=== PATIENT | female | born 1930 | race Caucasian/White ===

== ENCOUNTER 2018-04-16 09:19 | Inpatient (IN) | payer MEDICARE, OTHER ==
[2018-04-16] MEDS ORDERED: NITROGLYCERIN (SL) 0.4 MG TAB SL (10:00)
[2018-04-16] MEDS: ASPIRIN 81 MG TAB PO (10:08)
[2018-04-16] MEDS: NITROGLYCERIN 2% 1 GM OINT PKT TD (10:08)
[2018-04-16 10:34] LABS: ADD MAN DIFF? NO
[2018-04-16 10:45] LABS: WHITE BLOOD COUNT 10.3 10^3/ul (4.8-10.8)
[2018-04-16 10:45] LABS: ABNORMAL IP MESSAGE 1; BASOPHILS % 0.3 % (0.0-2.0); EOSINOPHILS % 0.3 % (0.0-7.0); HEMATOCRIT 36.8 % (37.0-47.0); HEMOGLOBIN 11.3 g/dl (12.0-16.0); LYMPHOCYTES # 0.8 10^3/ul (0.8-2.9); LYMPHOCYTES % 7.7 % (15.0-51.0); MEAN CORPUSCULAR HEMOGLOBIN 31.4 pg (29.0-33.0); MEAN CORPUSCULAR HGB CONC 30.7 g/dl (32.0-37.0); MEAN CORPUSCULAR VOLUME 102.2 fl (82.0-101.0); MEAN PLATELET VOLUME 13.5 fl (7.4-10.4); MONOCYTE # 0.6 10^3/ul (0.3-0.9); MONOCYTES % 6.1 % (0.0-11.0); NEUTROPHIL # 8.8 10^3/ul (1.6-7.5); NEUTROPHILS % 85.1 % (39.0-77.0); PLATELET COUNT 119 10^3/UL (140-415); RED CELL DISTRIBUTION WIDTH 15.7 % (11.5-14.5)
[2018-04-16 10:48] LABS: POSITIVE DIFF @See below
[2018-04-16 10:54] LABS: INR 2.74; PROTIME 29.8 Sec (11.9-14.9); PT RATIO 2.3
[2018-04-16 11:01] LABS: ANION GAP 7 (5-13); BLOOD UREA NITROGEN 34 mg/dl (7-20); CALCIUM 9.2 mg/dl (8.4-10.2); CARBON DIOXIDE 32 mmol/L (21-31); CHLORIDE 105 mmol/L (97-110); CREATININE 1.21 mg/dl (0.44-1.00); GLUCOSE 152 mg/dl (70-220); POTASSIUM 4.7 mmol/L (3.5-5.1); SODIUM 144 mmol/L (135-144)
[2018-04-16] MEDS ORDERED: ONDANSETRON 4 MG INJ IV (12:00)
[2018-04-16] MEDS ORDERED: ACETAMINOPHEN 325 MG TAB PO (12:00)
[2018-04-16 16:50] LABS: DIGOXIN < 0.4 ng/ml (1.0-2.0)
[2018-04-16 17:34] LABS: CREATINE KINASE 34 IU/L (23-200)
[2018-04-16 17:46] LABS: CK INDEX 4.1; CK-MB 1.41 ng/ml (0.0-2.4); TROPONIN-I 0.014 ng/ml (0.000-0.120)
[2018-04-16] MEDS: FUROSEMIDE 20 MG INJ IV (18:50)
[2018-04-16 23:35] LABS: CREATINE KINASE 30 IU/L (23-200)
[2018-04-16 23:48] LABS: CK-MB 1.49 ng/ml (0.0-2.4); TROPONIN-I 0.033 ng/ml (0.000-0.120)
[2018-04-17 06:11] LABS: RETICULOCYTE COUNT # 0.082 X10^6 (0.020-0.110); RETICULOCYTE COUNT % 2.3 % (0.5-1.5)
[2018-04-17 06:31] LABS: IRON 34 ug/dl (35-150)
[2018-04-17] MEDS: LEVOTHYROXINE 25 MCG TAB PO (06:31)
[2018-04-17] MEDS: FUROSEMIDE 20 MG INJ IV (06:32)
[2018-04-17 06:34] LABS: INR 1.51; PROTIME 18.5 Sec (11.9-14.9); PT RATIO 1.4
[2018-04-17 06:42] LABS: % IRON SATURATION 10 % SAT (22-52); TOTAL IRON BINDING CAPACITY 339 ug/dl (241-421)
[2018-04-17 06:48] LABS: CHOL/HDL RATIO 4.3 RATIO; HDL CHOLESTEROL 30 mg/dl (33-92); LDL CHOLESTEROL,CALCULATED 83 mg/dl; TRIGLYCERIDES 89 mg/dl (0-149)
[2018-04-17 06:48] LABS: CHOLESTEROL 131 mg/dl (100-200)
[2018-04-17 06:58] LABS: LACTATE DEHYDROGENASE 529 IU/L (313-618)
[2018-04-17 06:58] LABS: URIC ACID 6.8 mg/dl (3.1-7.9)
[2018-04-17 07:20] LABS: CARCINOEMBRYONIC ANTIGEN 1.2 ng/ml (0.0-5.0)
[2018-04-17 08:09] LABS: FERRITIN 52.9 ng/ml (11.1-264.0)
[2018-04-17 08:29] LABS: ERYTHROCYTE SEDIMENTATION RATE 76 mm/Hr (0-30)
[2018-04-17 09:12] LABS: FOLATE > 20.0 ng/ml (2.8-20.0)
[2018-04-17] MEDS: DIGOXIN 0.125 MG TAB PO (13:12)
[2018-04-17] MEDS: FUROSEMIDE 40 MG INJ IV (17:56)
[2018-04-17] MEDS ORDERED: NON-FORMULARY/PATIENT OWN MED (Eszopiclone (Lunesta) 2 MG) PO (21:00)
[2018-04-18] MEDS: LEVOTHYROXINE 25 MCG TAB PO (06:24)
[2018-04-18] MEDS: FUROSEMIDE 40 MG INJ IV ×2 (06:26→17:37)
[2018-04-18 08:53] LABS: ADD MAN DIFF? NO
[2018-04-18 08:56] LABS: BASOPHILS % 0.4 % (0.0-2.0); EOSINOPHILS % 0.5 % (0.0-7.0); HEMATOCRIT 37.6 % (37.0-47.0); HEMOGLOBIN 11.3 g/dl (12.0-16.0); LYMPHOCYTES # 0.6 10^3/ul (0.8-2.9); LYMPHOCYTES % 7.4 % (15.0-51.0); MEAN CORPUSCULAR HEMOGLOBIN 31.1 pg (29.0-33.0); MEAN CORPUSCULAR HGB CONC 30.1 g/dl (32.0-37.0); MEAN CORPUSCULAR VOLUME 103.6 fl (82.0-101.0); MEAN PLATELET VOLUME 12.4 fl (7.4-10.4); MONOCYTE # 0.6 10^3/ul (0.3-0.9); MONOCYTES % 6.6 % (0.0-11.0); NEUTROPHIL # 7.2 10^3/ul (1.6-7.5); NEUTROPHILS % 84.6 % (39.0-77.0); PLATELET COUNT 115 10^3/UL (140-415); RED BLOOD COUNT 3.63 10^6/ul (4.20-5.40); RED CELL DISTRIBUTION WIDTH 15.5 % (11.5-14.5)
[2018-04-18 08:56] LABS: WHITE BLOOD COUNT 8.5 10^3/ul (4.8-10.8)
[2018-04-18] MEDS: SPIRONOLACTONE 25 MG TAB PO (09:00)
[2018-04-18] MEDS: DOCUSATE SODIUM 250 MG CAP PO (09:00)
[2018-04-18] MEDS: LOSARTAN 50 MG TAB PO (09:00)
[2018-04-18 09:17] LABS: ANION GAP 7 (5-13); BLOOD UREA NITROGEN 38 mg/dl (7-20); CARBON DIOXIDE 33 mmol/L (21-31); CHLORIDE 105 mmol/L (97-110); CREATININE 1.06 mg/dl (0.44-1.00); GLUCOSE 158 mg/dl (70-220); POTASSIUM 4.6 mmol/L (3.5-5.1); SODIUM 145 mmol/L (135-144)
[2018-04-18] MEDS: GABAPENTIN 100 MG CAP PO (12:31)
[2018-04-18] MEDS: DIGOXIN 0.125 MG TAB PO (12:31)
[2018-04-18] MEDS: INSULIN ASPART [NOVOLOG] 3 ML PEN SC ×2 (17:40→20:57)
[2018-04-18 20:04] LABS: AADO2 Arterial 50.1 mmHg (7.0-24.0); Allen Test ACCEPTAB; Arterial Base Excess 8.1 mmol/L (-3.0-3); Arterial Blood Gas Oxygen Sat 95.9 mmHG (95.0-100.0); Arterial COHb 1.1 % (0.0-3.0); Arterial Fraction of Oxyhgb 94.7 % (93.0-99.0); Arterial HCO3 35.9 mmol/L (22.0-26.0); Arterial MetHb 0.1 % (0.0-1.5); Arterial pCO2 67.5 mmhg (35-45); MODE NASAL CANNULA; Site Right Brachial
[2018-04-18] MEDS ORDERED: FUROSEMIDE 20 MG INJ (22:30)
[2018-04-18] MEDS: FUROSEMIDE 20 MG INJ IV (22:35)
[2018-04-19 05:48] LABS: ADD MAN DIFF? NO
[2018-04-19 05:53] LABS: WHITE BLOOD COUNT 7.7 10^3/ul (4.8-10.8)
[2018-04-19 05:53] LABS: ABNORMAL IP MESSAGE 1; BASOPHILS % 0.3 % (0.0-2.0); EOSINOPHILS # 0.1 10^3/ul (0.0-0.5); HEMATOCRIT 37.1 % (37.0-47.0); HEMOGLOBIN 11.3 g/dl (12.0-16.0); LYMPHOCYTES # 0.6 10^3/ul (0.8-2.9); LYMPHOCYTES % 7.9 % (15.0-51.0); MEAN CORPUSCULAR HEMOGLOBIN 31.7 pg (29.0-33.0); MEAN CORPUSCULAR HGB CONC 30.5 g/dl (32.0-37.0); MEAN CORPUSCULAR VOLUME 103.9 fl (82.0-101.0); MEAN PLATELET VOLUME 13.3 fl (7.4-10.4); MONOCYTE # 0.6 10^3/ul (0.3-0.9); MONOCYTES % 7.9 % (0.0-11.0); NEUTROPHIL # 6.4 10^3/ul (1.6-7.5); NEUTROPHILS % 82.4 % (39.0-77.0); PLATELET COUNT 117 10^3/UL (140-415); RED BLOOD COUNT 3.57 10^6/ul (4.20-5.40); RED CELL DISTRIBUTION WIDTH 15.1 % (11.5-14.5)
[2018-04-19] MEDS: FUROSEMIDE 40 MG INJ IV (05:55)
[2018-04-19] MEDS: LEVOTHYROXINE 25 MCG TAB PO (06:01)
[2018-04-19 06:09] LABS: ANION GAP 3 (5-13); BLOOD UREA NITROGEN 40 mg/dl (7-20); CALCIUM 8.9 mg/dl (8.4-10.2); CARBON DIOXIDE 37 mmol/L (21-31); CHLORIDE 105 mmol/L (97-110); CREATININE 1.04 mg/dl (0.44-1.00); GLUCOSE 162 mg/dl (70-220); POTASSIUM 4.7 mmol/L (3.5-5.1); SODIUM 145 mmol/L (135-144)
[2018-04-19 06:11] LABS: POSITIVE DIFF @See below
[2018-04-19] MEDS: INSULIN ASPART [NOVOLOG] 3 ML PEN SC ×5 (07:00→21:00)
[2018-04-19] MEDS ORDERED: GLUCOSE GEL 15 GRAM TUBE PO ×2 (09:00)
[2018-04-19] MEDS ORDERED: GLUCOSE GEL 15 GRAM TUBE BUCCAL (09:00)
[2018-04-19] MEDS ORDERED: GLUCAGON 1 MG INJ IM (09:00)
[2018-04-19] MEDS ORDERED: DEXTROSE 50% 50 ML SYRINGE IV ×2 (09:00)
[2018-04-19] MEDS: SPIRONOLACTONE 25 MG TAB PO (09:24)
[2018-04-19] MEDS: LOSARTAN 50 MG TAB PO (09:24)
[2018-04-19] MEDS: DOCUSATE SODIUM 250 MG CAP PO (09:24)
[2018-04-19] MEDS: DIGOXIN 0.125 MG TAB PO (13:14)
[2018-04-19] MEDS: SOD FERRIC GLUC COMPLX 125 MG in SOD CHLORIDE 0.9% 100 ML IVPB (17:10)
[2018-04-19] MEDS: FUROSEMIDE 20 MG INJ IV (17:11)
[2018-04-20 01:38] LABS: PROTEIN, TOTAL 6.1 g/dL (6.1-8.1)
[2018-04-20 05:34] LABS: ADD MAN DIFF? NO
[2018-04-20 05:41] LABS: ABNORMAL IP MESSAGE 1; BASOPHILS % 0.4 % (0.0-2.0); EOSINOPHILS % 0.4 % (0.0-7.0); HEMATOCRIT 37.7 % (37.0-47.0); HEMOGLOBIN 11.5 g/dl (12.0-16.0); LYMPHOCYTES # 0.5 10^3/ul (0.8-2.9); MEAN CORPUSCULAR HEMOGLOBIN 31.5 pg (29.0-33.0); MEAN CORPUSCULAR HGB CONC 30.5 g/dl (32.0-37.0); MEAN CORPUSCULAR VOLUME 103.3 fl (82.0-101.0); MEAN PLATELET VOLUME 12.7 fl (7.4-10.4); MONOCYTE # 0.5 10^3/ul (0.3-0.9); NEUTROPHIL # 6.3 10^3/ul (1.6-7.5); NEUTROPHILS % 84.5 % (39.0-77.0); PLATELET COUNT 115 10^3/UL (140-415); RED BLOOD COUNT 3.65 10^6/ul (4.20-5.40); RED CELL DISTRIBUTION WIDTH 14.8 % (11.5-14.5)
[2018-04-20 05:41] LABS: WHITE BLOOD COUNT 7.5 10^3/ul (4.8-10.8)
[2018-04-20 06:03] LABS: POSITIVE DIFF @See below
[2018-04-20 06:08] LABS: ANION GAP 4 (5-13); BLOOD UREA NITROGEN 41 mg/dl (7-20); CALCIUM 8.9 mg/dl (8.4-10.2); CARBON DIOXIDE 37 mmol/L (21-31); CHLORIDE 103 mmol/L (97-110); CREATININE 0.94 mg/dl (0.44-1.00); GLUCOSE 162 mg/dl (70-220); POTASSIUM 4.6 mmol/L (3.5-5.1); SODIUM 144 mmol/L (135-144)
[2018-04-20] MEDS: LEVOTHYROXINE 25 MCG TAB PO (06:11)
[2018-04-20] MEDS: FUROSEMIDE 20 MG INJ IV ×2 (06:13→17:03)
[2018-04-20] MEDS: INSULIN ASPART [NOVOLOG] 3 ML PEN SC ×5 (07:00→21:15)
[2018-04-20] MEDS: SPIRONOLACTONE 25 MG TAB PO (08:15)
[2018-04-20] MEDS: DOCUSATE SODIUM 250 MG CAP PO (08:15)
[2018-04-20] MEDS: LOSARTAN 50 MG TAB PO (08:15)
[2018-04-20 08:22] LABS: AADO2 Arterial 52.3 mmHg (7.0-24.0); Allen Test ACCEPTAB; Arterial Base Excess 11.8 mmol/L (-3.0-3); Arterial Blood Gas Oxygen Sat 95.9 mmHG (95.0-100.0); Arterial COHb 1.1 % (0.0-3.0); Arterial Fraction of Oxyhgb 94.7 % (93.0-99.0); Arterial MetHb 0.2 % (0.0-1.5); Arterial Total Hemglobin 11.2 g/dl (12.0-18.0); Arterial pCO2 65.1 mmhg (35-45); Blood Gas IEPAP 15/5; Blood Gas PS 10; MODE MASK - BIPAP; Site Right Radial
[2018-04-20] MEDS: DIGOXIN 0.125 MG TAB PO (12:37)
[2018-04-20] MEDS: IPRATROPIUM (NEB) 0.5 MG/2.5 ML AMP HHN ×2 (15:52→19:04)
[2018-04-20] MEDS: SOD FERRIC GLUC COMPLX 125 MG in SOD CHLORIDE 0.9% 100 ML IVPB (16:10)
[2018-04-20] MEDS: LIDOCAINE 5% PATCH TD (17:30)
[2018-04-20 18:26] LABS: ALPHA-1-GLOBULINS 0.4 g/dL (0.2-0.3); ALPHA-2-GLOBULINS 0.8 g/dL (0.5-0.9); BETA 2 GLOBULINS 0.4 g/dL (0.2-0.5); BETA GLOBULINS 0.5 g/dL (0.4-0.6); GAMMA GLOBULINS 1.1 g/dL (0.8-1.7)
[2018-04-21] MEDS: IPRATROPIUM (NEB) 0.5 MG/2.5 ML AMP HHN ×4 (01:04→20:09)
[2018-04-21 06:02] LABS: ADD MAN DIFF? NO
[2018-04-21 06:09] LABS: WHITE BLOOD COUNT 8.3 10^3/ul (4.8-10.8)
[2018-04-21 06:09] LABS: ABNORMAL IP MESSAGE 1; BASOPHILS % 0.5 % (0.0-2.0); EOSINOPHILS # 0.1 10^3/ul (0.0-0.5); EOSINOPHILS % 0.7 % (0.0-7.0); HEMATOCRIT 37.9 % (37.0-47.0); HEMOGLOBIN 11.4 g/dl (12.0-16.0); LYMPHOCYTES # 0.6 10^3/ul (0.8-2.9); MEAN CORPUSCULAR HEMOGLOBIN 30.7 pg (29.0-33.0); MEAN CORPUSCULAR HGB CONC 30.1 g/dl (32.0-37.0); MEAN CORPUSCULAR VOLUME 102.2 fl (82.0-101.0); MEAN PLATELET VOLUME 12.9 fl (7.4-10.4); MONOCYTE # 0.6 10^3/ul (0.3-0.9); MONOCYTES % 7.8 % (0.0-11.0); NEUTROPHIL # 6.9 10^3/ul (1.6-7.5); NEUTROPHILS % 83.4 % (39.0-77.0); PLATELET COUNT 120 10^3/UL (140-415); RED BLOOD COUNT 3.71 10^6/ul (4.20-5.40)
[2018-04-21] MEDS: LEVOTHYROXINE 25 MCG TAB PO (06:20)
[2018-04-21] MEDS: FUROSEMIDE 20 MG INJ IV ×2 (06:21→18:04)
[2018-04-21 06:26] LABS: ANION GAP 6 (5-13); BLOOD UREA NITROGEN 38 mg/dl (7-20); CALCIUM 8.9 mg/dl (8.4-10.2); CARBON DIOXIDE 37 mmol/L (21-31); CHLORIDE 101 mmol/L (97-110); CREATININE 0.87 mg/dl (0.44-1.00); GLUCOSE 164 mg/dl (70-220); POTASSIUM 4.5 mmol/L (3.5-5.1); SODIUM 144 mmol/L (135-144)
[2018-04-21 06:41] LABS: LYMPHOCYTES % 6.9 % (15.0-51.0); POSITIVE DIFF @See below
[2018-04-21] MEDS: INSULIN ASPART [NOVOLOG] 3 ML PEN SC ×5 (07:59→20:47)
[2018-04-21] MEDS: SPIRONOLACTONE 25 MG TAB PO (09:29)
[2018-04-21] MEDS: DOCUSATE SODIUM 250 MG CAP PO (09:30)
[2018-04-21] MEDS: LOSARTAN 50 MG TAB PO (09:30)
[2018-04-21] MEDS: LIDOCAINE 5% PATCH TD (09:38)
[2018-04-21] MEDS: DIGOXIN 0.125 MG TAB PO (14:11)
[2018-04-21] MEDS: SOD FERRIC GLUC COMPLX 125 MG in SOD CHLORIDE 0.9% 100 ML IVPB (17:12)
[2018-04-21] MEDS: ZOLPIDEM 5 MG TAB PO (23:27)
[2018-04-22] MEDS: IPRATROPIUM (NEB) 0.5 MG/2.5 ML AMP HHN ×4 (01:46→21:10)
[2018-04-22 05:17] LABS: AADO2 Arterial 66.9 mmHg (7.0-24.0); Allen Test ACCEPTAB; Arterial Base Excess 12.7 mmol/L (-3.0-3); Arterial Blood Gas Oxygen Sat 94.3 mmHG (95.0-100.0); Arterial COHb 1.2 % (0.0-3.0); Arterial Fraction of Oxyhgb 93.1 % (93.0-99.0); Arterial MetHb 0.1 % (0.0-1.5); Arterial Total Hemglobin 13.4 g/dl (12.0-18.0); Arterial pCO2 63.3 mmhg (35-45); Blood Gas IEPAP 17/7; MODE MASK - BIPAP; Site Right Radial
[2018-04-22 06:12] LABS: ADD MAN DIFF? NO
[2018-04-22 06:24] LABS: BASOPHILS % 0.3 % (0.0-2.0); EOSINOPHILS # 0.1 10^3/ul (0.0-0.5); EOSINOPHILS % 0.5 % (0.0-7.0); HEMATOCRIT 39.5 % (37.0-47.0); HEMOGLOBIN 11.9 g/dl (12.0-16.0); LYMPHOCYTES # 0.6 10^3/ul (0.8-2.9); LYMPHOCYTES % 6.4 % (15.0-51.0); MEAN CORPUSCULAR HEMOGLOBIN 30.8 pg (29.0-33.0); MEAN CORPUSCULAR HGB CONC 30.1 g/dl (32.0-37.0); MEAN CORPUSCULAR VOLUME 102.3 fl (82.0-101.0); MONOCYTE # 0.6 10^3/ul (0.3-0.9); MONOCYTES % 6.2 % (0.0-11.0); NEUTROPHIL # 8.5 10^3/ul (1.6-7.5); NEUTROPHILS % 85.5 % (39.0-77.0); PLATELET COUNT 144 10^3/UL (140-415); RED BLOOD COUNT 3.86 10^6/ul (4.20-5.40); RED CELL DISTRIBUTION WIDTH 15.3 % (11.5-14.5)
[2018-04-22 06:24] LABS: WHITE BLOOD COUNT 9.9 10^3/ul (4.8-10.8)
[2018-04-22 06:55] LABS: ANION GAP 5 (5-13); BLOOD UREA NITROGEN 38 mg/dl (7-20); CALCIUM 9.1 mg/dl (8.4-10.2); CARBON DIOXIDE 38 mmol/L (21-31); CHLORIDE 100 mmol/L (97-110); CREATININE 0.95 mg/dl (0.44-1.00); GLUCOSE 190 mg/dl (70-220); POTASSIUM 4.2 mmol/L (3.5-5.1); SODIUM 143 mmol/L (135-144)
[2018-04-22] MEDS: FUROSEMIDE 20 MG INJ IV ×3 (07:04→20:49)
[2018-04-22] MEDS: LEVOTHYROXINE 25 MCG TAB PO (07:04)
[2018-04-22] MEDS: INSULIN ASPART [NOVOLOG] 3 ML PEN SC ×5 (08:07→21:07)
[2018-04-22] MEDS: DOCUSATE SODIUM 250 MG CAP PO (12:18)
[2018-04-22] MEDS: LIDOCAINE 5% PATCH TD (12:18)
[2018-04-22] MEDS: SPIRONOLACTONE 25 MG TAB PO (12:18)
[2018-04-22] MEDS: LOSARTAN 50 MG TAB PO (12:18)
[2018-04-22] MEDS: DIGOXIN 0.125 MG TAB PO (13:43)
[2018-04-22 19:37] LABS: AADO2 Arterial 36.8 mmHg (7.0-24.0); Allen Test ACCEPTAB; Arterial Base Excess 13.8 mmol/L (-3.0-3); Arterial Blood Gas Oxygen Sat 81.3 mmHG (95.0-100.0); Arterial COHb 1.5 % (0.0-3.0); Arterial HCO3 40.3 mmol/L (22.0-26.0); Arterial MetHb 0.1 % (0.0-1.5); Arterial Total Hemglobin 12.7 g/dl (12.0-18.0); Arterial pCO2 59.6 mmhg (35-45); MODE ROOM AIR; Site Right Radial
[2018-04-23] MEDS: IPRATROPIUM (NEB) 0.5 MG/2.5 ML AMP HHN ×4 (01:22→19:30)
[2018-04-23 05:16] LABS: AADO2 Arterial 30.3 mmHg (7.0-24.0); Allen Test ACCEPTAB; Arterial Base Excess 13.7 mmol/L (-3.0-3); Arterial Blood Gas Oxygen Sat 83.9 mmHG (95.0-100.0); Arterial COHb 1.3 % (0.0-3.0); Arterial Fraction of Oxyhgb 82.7 % (93.0-99.0); Arterial HCO3 40.4 mmol/L (22.0-26.0); Arterial MetHb 0.1 % (0.0-1.5); Arterial Total Hemglobin 12.3 g/dl (12.0-18.0); Arterial pCO2 61.6 mmhg (35-45); MODE ROOM AIR; Site Right Radial
[2018-04-23] MEDS: FUROSEMIDE 20 MG INJ IV ×2 (05:56→17:39)
[2018-04-23] MEDS: LEVOTHYROXINE 25 MCG TAB PO (05:57)
[2018-04-23 06:09] LABS: ADD MAN DIFF? NO
[2018-04-23 06:21] LABS: WHITE BLOOD COUNT 8.1 10^3/ul (4.8-10.8)
[2018-04-23 06:21] LABS: ABNORMAL IP MESSAGE 1; BASOPHILS % 0.4 % (0.0-2.0); EOSINOPHILS # 0.1 10^3/ul (0.0-0.5); EOSINOPHILS % 0.9 % (0.0-7.0); HEMATOCRIT 37.6 % (37.0-47.0); HEMOGLOBIN 11.2 g/dl (12.0-16.0); LYMPHOCYTES # 0.7 10^3/ul (0.8-2.9); MEAN CORPUSCULAR HEMOGLOBIN 30.6 pg (29.0-33.0); MEAN CORPUSCULAR HGB CONC 29.8 g/dl (32.0-37.0); MEAN CORPUSCULAR VOLUME 102.7 fl (82.0-101.0); MEAN PLATELET VOLUME 13.1 fl (7.4-10.4); MONOCYTE # 0.6 10^3/ul (0.3-0.9); MONOCYTES % 7.7 % (0.0-11.0); NEUTROPHIL # 6.6 10^3/ul (1.6-7.5); NEUTROPHILS % 81.9 % (39.0-77.0); PLATELET COUNT 131 10^3/UL (140-415); RED BLOOD COUNT 3.66 10^6/ul (4.20-5.40); RED CELL DISTRIBUTION WIDTH 15.5 % (11.5-14.5)
[2018-04-23 07:02] LABS: POSITIVE DIFF @See below
[2018-04-23 07:39] LABS: BLOOD UREA NITROGEN 41 mg/dl (7-20); CHLORIDE 99 mmol/L (97-110); CREATININE 0.99 mg/dl (0.44-1.00); GLUCOSE 227 mg/dl (70-220); POTASSIUM 4.5 mmol/L (3.5-5.1); SODIUM 144 mmol/L (135-144)
[2018-04-23 07:46] LABS: ANION GAP 7 (5-13)
[2018-04-23 07:53] LABS: CARBON DIOXIDE 38 mmol/L (21-31)
[2018-04-23] MEDS: INSULIN ASPART [NOVOLOG] 3 ML PEN SC ×5 (07:55→20:57)
[2018-04-23] MEDS: LIDOCAINE 5% PATCH TD (08:37)
[2018-04-23] MEDS: DOCUSATE SODIUM 250 MG CAP PO (08:38)
[2018-04-23] MEDS: LOSARTAN 50 MG TAB PO (08:38)
[2018-04-23] MEDS: SPIRONOLACTONE 25 MG TAB PO (08:38)
[2018-04-23] MEDS ORDERED: FUROSEMIDE 40 MG INJ IV (13:00)
[2018-04-23] MEDS: DIGOXIN 0.125 MG TAB PO (13:00)
[2018-04-23] MEDS: HYDROCORTISONE 100 MG INJ IV (13:54)
[2018-04-23] MEDS: LEVALBUTEROL (NEB) 0.63 MG/3 ML AMP HHN (17:00)
[2018-04-24] MEDS: IPRATROPIUM (NEB) 0.5 MG/2.5 ML AMP HHN ×4 (01:18→20:02)
[2018-04-24 05:26] LABS: ADD MAN DIFF? NO
[2018-04-24 05:32] LABS: WHITE BLOOD COUNT 8.5 10^3/ul (4.8-10.8)
[2018-04-24 05:32] LABS: ABNORMAL IP MESSAGE 1; BASOPHILS % 0.1 % (0.0-2.0); EOSINOPHILS % 0.2 % (0.0-7.0); HEMATOCRIT 35.6 % (37.0-47.0); HEMOGLOBIN 10.9 g/dl (12.0-16.0); LYMPHOCYTES # 0.7 10^3/ul (0.8-2.9); MEAN CORPUSCULAR HEMOGLOBIN 31.3 pg (29.0-33.0); MEAN CORPUSCULAR HGB CONC 30.6 g/dl (32.0-37.0); MEAN CORPUSCULAR VOLUME 102.3 fl (82.0-101.0); MEAN PLATELET VOLUME 13.3 fl (7.4-10.4); MONOCYTE # 0.6 10^3/ul (0.3-0.9); MONOCYTES % 6.7 % (0.0-11.0); NEUTROPHIL # 7.1 10^3/ul (1.6-7.5); NEUTROPHILS % 84.2 % (39.0-77.0); PLATELET COUNT 132 10^3/UL (140-415); RED BLOOD COUNT 3.48 10^6/ul (4.20-5.40); RED CELL DISTRIBUTION WIDTH 15.4 % (11.5-14.5)
[2018-04-24] MEDS: FUROSEMIDE 20 MG INJ IV ×2 (05:32→17:22)
[2018-04-24] MEDS: LEVOTHYROXINE 25 MCG TAB PO (05:32)
[2018-04-24 05:43] LABS: POSITIVE DIFF @See below
[2018-04-24 06:14] LABS: ALANINE AMINOTRANSFERASE 20 IU/L (13-69); ALBUMIN 3.1 g/dl (3.3-4.9); ALBUMIN/GLOBULIN RATIO 1.19; ALKALINE PHOSPHATASE 88 IU/L (42-121); ASPARTATE AMINO TRANSFERASE 19 IU/L (15-46); BILIRUBIN,INDIRECT 0.6 mg/dl (0-1.1); BILIRUBIN,TOTAL 0.6 mg/dl (0.2-1.3); BLOOD UREA NITROGEN 41 mg/dl (7-20); CALCIUM 8.9 mg/dl (8.4-10.2); CHLORIDE 97 mmol/L (97-110); CREATININE 0.99 mg/dl (0.44-1.00); GLUCOSE 218 mg/dl (70-220); POTASSIUM 4.3 mmol/L (3.5-5.1); SODIUM 144 mmol/L (135-144); TOTAL PROTEIN 5.7 g/dl (6.1-8.1)
[2018-04-24 06:20] LABS: ANION GAP 7 (5-13)
[2018-04-24 06:26] LABS: CARBON DIOXIDE 40 mmol/L (21-31)
[2018-04-24] MEDS: INSULIN ASPART [NOVOLOG] 3 ML PEN SC ×5 (08:14→20:46)
[2018-04-24] MEDS: LIDOCAINE 5% PATCH TD (09:48)
[2018-04-24] MEDS: DOCUSATE SODIUM 250 MG CAP PO (09:49)
[2018-04-24] MEDS: LOSARTAN 50 MG TAB PO (09:49)
[2018-04-24] MEDS: SPIRONOLACTONE 25 MG TAB PO (09:49)
[2018-04-24] MEDS: HYDROCORTISONE 100 MG INJ IV (09:50)
[2018-04-24] MEDS: BISACODYL (EC) 5 MG TAB PO (10:18)
[2018-04-24] MEDS: POLYETHYLENE GLYCOL 17 GM PACKET PO ×2 (10:18→20:28)
[2018-04-24] MEDS ORDERED: NA PHOSPHATE/BIPHOS 133 ML ENEMA PR (10:30)
[2018-04-24] MEDS: DIGOXIN 0.125 MG TAB PO (13:14)
[2018-04-25] MEDS: IPRATROPIUM (NEB) 0.5 MG/2.5 ML AMP HHN ×4 (01:23→19:25)
[2018-04-25 05:09] LABS: ADD MAN DIFF? NO
[2018-04-25 05:11] LABS: WHITE BLOOD COUNT 8.7 10^3/ul (4.8-10.8)
[2018-04-25 05:11] LABS: BASOPHILS % 0.1 % (0.0-2.0); EOSINOPHILS # 0.1 10^3/ul (0.0-0.5); EOSINOPHILS % 0.8 % (0.0-7.0); HEMOGLOBIN 10.7 g/dl (12.0-16.0); LYMPHOCYTES # 0.9 10^3/ul (0.8-2.9); LYMPHOCYTES % 10.2 % (15.0-51.0); MEAN CORPUSCULAR HEMOGLOBIN 31.4 pg (29.0-33.0); MEAN CORPUSCULAR HGB CONC 30.6 g/dl (32.0-37.0); MEAN CORPUSCULAR VOLUME 102.6 fl (82.0-101.0); MONOCYTE # 0.7 10^3/ul (0.3-0.9); MONOCYTES % 8.2 % (0.0-11.0); NEUTROPHIL # 6.9 10^3/ul (1.6-7.5); NEUTROPHILS % 79.6 % (39.0-77.0); PLATELET COUNT 118 10^3/UL (140-415); RED BLOOD COUNT 3.41 10^6/ul (4.20-5.40); RED CELL DISTRIBUTION WIDTH 15.6 % (11.5-14.5)
[2018-04-25 05:43] LABS: BLOOD UREA NITROGEN 51 mg/dl (7-20); CALCIUM 8.8 mg/dl (8.4-10.2); CHLORIDE 97 mmol/L (97-110); CREATININE 1.12 mg/dl (0.44-1.00); GLUCOSE 199 mg/dl (70-220); POTASSIUM 4.7 mmol/L (3.5-5.1); SODIUM 143 mmol/L (135-144)
[2018-04-25] MEDS: hydrALAzine 20 MG INJ IV (06:31)
[2018-04-25] MEDS: FUROSEMIDE 20 MG INJ IV ×2 (06:31→17:14)
[2018-04-25] MEDS: LEVOTHYROXINE 25 MCG TAB PO (06:31)
[2018-04-25 06:32] LABS: ANION GAP 7 (5-13)
[2018-04-25 06:44] LABS: CARBON DIOXIDE 39 mmol/L (21-31)
[2018-04-25] MEDS: HYDROCORTISONE 100 MG INJ IV (08:28)
[2018-04-25] MEDS: LOSARTAN 50 MG TAB PO (08:29)
[2018-04-25] MEDS: SPIRONOLACTONE 25 MG TAB PO (08:29)
[2018-04-25] MEDS: POLYETHYLENE GLYCOL 17 GM PACKET PO ×2 (08:29→20:10)
[2018-04-25] MEDS: DOCUSATE SODIUM 250 MG CAP PO (08:29)
[2018-04-25] MEDS: LIDOCAINE 5% PATCH TD ×2 (08:30→08:38)
[2018-04-25] MEDS: INSULIN ASPART [NOVOLOG] 3 ML PEN SC ×5 (08:32→21:47)
[2018-04-25] MEDS: DIGOXIN 0.125 MG TAB PO (12:06)
[2018-04-25 14:20] LABS: IRON 54 ug/dl (35-150)
[2018-04-25 14:29] LABS: % IRON SATURATION 19 % SAT (22-52); TOTAL IRON BINDING CAPACITY 283 ug/dl (241-421)
[2018-04-25 14:41] LABS: MAGNESIUM 2.4 mg/dl (1.7-2.5)
[2018-04-25 14:41] LABS: URIC ACID 6.8 mg/dl (3.1-7.9)
[2018-04-26] MEDS: IPRATROPIUM (NEB) 0.5 MG/2.5 ML AMP HHN ×4 (01:20→21:04)
[2018-04-26 05:34] LABS: ADD MAN DIFF? NO
[2018-04-26 05:51] LABS: WHITE BLOOD COUNT 8.7 10^3/ul (4.8-10.8)
[2018-04-26 05:51] LABS: ABNORMAL IP MESSAGE 1; BASOPHILS % 0.3 % (0.0-2.0); EOSINOPHILS # 0.1 10^3/ul (0.0-0.5); EOSINOPHILS % 0.8 % (0.0-7.0); HEMATOCRIT 37.4 % (37.0-47.0); HEMOGLOBIN 11.6 g/dl (12.0-16.0); LYMPHOCYTES # 0.8 10^3/ul (0.8-2.9); MEAN CORPUSCULAR HEMOGLOBIN 31.4 pg (29.0-33.0); MEAN CORPUSCULAR VOLUME 101.1 fl (82.0-101.0); MEAN PLATELET VOLUME 13.9 fl (7.4-10.4); MONOCYTE # 0.7 10^3/ul (0.3-0.9); MONOCYTES % 7.9 % (0.0-11.0); NEUTROPHILS % 80.8 % (39.0-77.0); PLATELET COUNT 125 10^3/UL (140-415); RED CELL DISTRIBUTION WIDTH 15.6 % (11.5-14.5)
[2018-04-26 05:58] LABS: POSITIVE DIFF @See below
[2018-04-26] MEDS: LEVOTHYROXINE 25 MCG TAB PO (06:55)
[2018-04-26 07:37] LABS: ANION GAP 6 (5-13); BLOOD UREA NITROGEN 56 mg/dl (7-20); CARBON DIOXIDE 39 mmol/L (21-31); CHLORIDE 97 mmol/L (97-110); CREATININE 1.02 mg/dl (0.44-1.00); GLUCOSE 168 mg/dl (70-220); POTASSIUM 4.6 mmol/L (3.5-5.1); SODIUM 142 mmol/L (135-144)
[2018-04-26] MEDS: LOSARTAN 50 MG TAB PO (08:15)
[2018-04-26] MEDS: DOCUSATE SODIUM 250 MG CAP PO (08:15)
[2018-04-26] MEDS: SPIRONOLACTONE 25 MG TAB PO (08:15)
[2018-04-26] MEDS: POLYETHYLENE GLYCOL 17 GM PACKET PO ×2 (08:16→20:20)
[2018-04-26] MEDS: LIDOCAINE 5% PATCH TD (08:16)
[2018-04-26] MEDS: INSULIN ASPART [NOVOLOG] 3 ML PEN SC ×5 (08:42→20:24)
[2018-04-26] MEDS: FUROSEMIDE 20 MG INJ IV ×2 (09:55→17:24)
[2018-04-26] MEDS: DIGOXIN 0.125 MG TAB PO (12:23)
[2018-04-26] MEDS: LEVALBUTEROL (NEB) 0.63 MG/3 ML AMP HHN (21:04)
[2018-04-27] MEDS: IPRATROPIUM (NEB) 0.5 MG/2.5 ML AMP HHN ×4 (02:00→19:53)
[2018-04-27] MEDS: FUROSEMIDE 20 MG INJ IV ×2 (05:13→17:33)
[2018-04-27 05:42] LABS: ADD MAN DIFF? NO
[2018-04-27 05:57] LABS: WHITE BLOOD COUNT 8.7 10^3/ul (4.8-10.8)
[2018-04-27 05:57] LABS: ABNORMAL IP MESSAGE 1; BASOPHILS % 0.2 % (0.0-2.0); EOSINOPHILS # 0.1 10^3/ul (0.0-0.5); EOSINOPHILS % 0.8 % (0.0-7.0); HEMATOCRIT 36.7 % (37.0-47.0); HEMOGLOBIN 11.1 g/dl (12.0-16.0); LYMPHOCYTES # 0.7 10^3/ul (0.8-2.9); LYMPHOCYTES % 8.5 % (15.0-51.0); MEAN CORPUSCULAR HEMOGLOBIN 30.7 pg (29.0-33.0); MEAN CORPUSCULAR HGB CONC 30.2 g/dl (32.0-37.0); MEAN CORPUSCULAR VOLUME 101.4 fl (82.0-101.0); MEAN PLATELET VOLUME 13.6 fl (7.4-10.4); MONOCYTE # 0.6 10^3/ul (0.3-0.9); MONOCYTES % 6.9 % (0.0-11.0); NEUTROPHIL # 7.2 10^3/ul (1.6-7.5); NEUTROPHILS % 82.5 % (39.0-77.0); PLATELET COUNT 121 10^3/UL (140-415); RED BLOOD COUNT 3.62 10^6/ul (4.20-5.40); RED CELL DISTRIBUTION WIDTH 15.8 % (11.5-14.5)
[2018-04-27 05:58] LABS: POSITIVE DIFF @See below
[2018-04-27 06:09] LABS: BLOOD UREA NITROGEN 52 mg/dl (7-20); CALCIUM 8.6 mg/dl (8.4-10.2); CHLORIDE 97 mmol/L (97-110); CREATININE 0.97 mg/dl (0.44-1.00); GLUCOSE 196 mg/dl (70-220); POTASSIUM 4.9 mmol/L (3.5-5.1); SODIUM 142 mmol/L (135-144)
[2018-04-27 06:15] LABS: ANION GAP 7 (5-13)
[2018-04-27 06:42] LABS: CARBON DIOXIDE 38 mmol/L (21-31)
[2018-04-27] MEDS: LEVOTHYROXINE 25 MCG TAB PO (06:48)
[2018-04-27] MEDS: INSULIN ASPART [NOVOLOG] 3 ML PEN SC ×5 (07:59→20:25)
[2018-04-27] MEDS: SPIRONOLACTONE 25 MG TAB PO (08:39)
[2018-04-27] MEDS: DOCUSATE SODIUM 250 MG CAP PO (08:39)
[2018-04-27] MEDS: LOSARTAN 50 MG TAB PO (08:42)
[2018-04-27] MEDS: POLYETHYLENE GLYCOL 17 GM PACKET PO ×2 (08:42→20:23)
[2018-04-27] MEDS: LIDOCAINE 5% PATCH TD (08:43)
[2018-04-27] MEDS: DIGOXIN 0.125 MG TAB PO (15:11)
[2018-04-28] MEDS: IPRATROPIUM (NEB) 0.5 MG/2.5 ML AMP HHN ×4 (01:28→21:03)
[2018-04-28] MEDS: FUROSEMIDE 20 MG INJ IV (05:46)
[2018-04-28 06:03] LABS: ADD MAN DIFF? NO
[2018-04-28 06:18] LABS: ABNORMAL IP MESSAGE 1; BASOPHILS % 0.4 % (0.0-2.0); EOSINOPHILS # 0.1 10^3/ul (0.0-0.5); HEMATOCRIT 37.4 % (37.0-47.0); HEMOGLOBIN 11.5 g/dl (12.0-16.0); LYMPHOCYTES # 0.8 10^3/ul (0.8-2.9); LYMPHOCYTES % 10.4 % (15.0-51.0); MEAN CORPUSCULAR HEMOGLOBIN 31.2 pg (29.0-33.0); MEAN CORPUSCULAR HGB CONC 30.7 g/dl (32.0-37.0); MEAN CORPUSCULAR VOLUME 101.4 fl (82.0-101.0); MEAN PLATELET VOLUME 13.2 fl (7.4-10.4); MONOCYTE # 0.5 10^3/ul (0.3-0.9); MONOCYTES % 6.6 % (0.0-11.0); NEUTROPHIL # 6.4 10^3/ul (1.6-7.5); NEUTROPHILS % 80.5 % (39.0-77.0); PLATELET COUNT 113 10^3/UL (140-415); RED BLOOD COUNT 3.69 10^6/ul (4.20-5.40); RED CELL DISTRIBUTION WIDTH 15.8 % (11.5-14.5)
[2018-04-28 06:18] LABS: WHITE BLOOD COUNT 7.9 10^3/ul (4.8-10.8)
[2018-04-28 06:24] LABS: POSITIVE DIFF @See below
[2018-04-28] MEDS: LEVOTHYROXINE 25 MCG TAB PO (06:56)
[2018-04-28 07:02] LABS: BLOOD UREA NITROGEN 49 mg/dl (7-20); CALCIUM 8.7 mg/dl (8.4-10.2); CHLORIDE 98 mmol/L (97-110); CREATININE 0.94 mg/dl (0.44-1.00); GLUCOSE 174 mg/dl (70-220); POTASSIUM 4.8 mmol/L (3.5-5.1); SODIUM 142 mmol/L (135-144)
[2018-04-28 07:09] LABS: ANION GAP 6 (5-13)
[2018-04-28 07:11] LABS: CARBON DIOXIDE 38 mmol/L (21-31)
[2018-04-28] MEDS: INSULIN ASPART [NOVOLOG] 3 ML PEN SC ×5 (08:19→21:00)
[2018-04-28] MEDS: DOCUSATE SODIUM 250 MG CAP PO (08:22)
[2018-04-28] MEDS: SPIRONOLACTONE 25 MG TAB PO (08:22)
[2018-04-28] MEDS: POLYETHYLENE GLYCOL 17 GM PACKET PO ×2 (08:22→20:39)
[2018-04-28] MEDS: LIDOCAINE 5% PATCH TD (08:22)
[2018-04-28] MEDS: LOSARTAN 50 MG TAB PO (08:23)
[2018-04-28] MEDS: DIGOXIN 0.125 MG TAB PO (14:03)
[2018-04-28] MEDS: RIVAROXABAN 15 MG TABLET PO (17:29)
[2018-04-28] MEDS: FUROSEMIDE 40 MG INJ IV (17:29)
[2018-04-29] MEDS: IPRATROPIUM (NEB) 0.5 MG/2.5 ML AMP HHN ×4 (01:39→20:31)
[2018-04-29 06:13] LABS: ADD MAN DIFF? NO
[2018-04-29 06:18] LABS: ABNORMAL IP MESSAGE 1; BASOPHILS % 0.3 % (0.0-2.0); EOSINOPHILS # 0.1 10^3/ul (0.0-0.5); EOSINOPHILS % 0.9 % (0.0-7.0); HEMATOCRIT 38.6 % (37.0-47.0); HEMOGLOBIN 11.8 g/dl (12.0-16.0); LYMPHOCYTES # 0.8 10^3/ul (0.8-2.9); MEAN CORPUSCULAR HEMOGLOBIN 30.8 pg (29.0-33.0); MEAN CORPUSCULAR HGB CONC 30.6 g/dl (32.0-37.0); MEAN CORPUSCULAR VOLUME 100.8 fl (82.0-101.0); MEAN PLATELET VOLUME 13.3 fl (7.4-10.4); MONOCYTE # 0.7 10^3/ul (0.3-0.9); MONOCYTES % 7.1 % (0.0-11.0); NEUTROPHIL # 8.1 10^3/ul (1.6-7.5); NEUTROPHILS % 82.8 % (39.0-77.0); PLATELET COUNT 133 10^3/UL (140-415); RED BLOOD COUNT 3.83 10^6/ul (4.20-5.40); RED CELL DISTRIBUTION WIDTH 15.9 % (11.5-14.5)
[2018-04-29 06:18] LABS: WHITE BLOOD COUNT 9.8 10^3/ul (4.8-10.8)
[2018-04-29 06:24] LABS: POSITIVE DIFF @See below
[2018-04-29 06:39] LABS: BLOOD UREA NITROGEN 47 mg/dl (7-20); CHLORIDE 95 mmol/L (97-110); CREATININE 0.96 mg/dl (0.44-1.00); GLUCOSE 186 mg/dl (70-220); POTASSIUM 4.9 mmol/L (3.5-5.1); SODIUM 144 mmol/L (135-144)
[2018-04-29] MEDS: LEVOTHYROXINE 25 MCG TAB PO (06:52)
[2018-04-29] MEDS: FUROSEMIDE 40 MG INJ IV ×2 (06:52→17:31)
[2018-04-29 07:05] LABS: ANION GAP 8 (5-13)
[2018-04-29 07:07] LABS: CARBON DIOXIDE 41 mmol/L (21-31)
[2018-04-29] MEDS: INSULIN ASPART [NOVOLOG] 3 ML PEN SC ×6 (07:54→20:16)
[2018-04-29] MEDS: DOCUSATE SODIUM 250 MG CAP PO (09:10)
[2018-04-29] MEDS: LOSARTAN 50 MG TAB PO (09:10)
[2018-04-29] MEDS: POLYETHYLENE GLYCOL 17 GM PACKET PO ×2 (09:11→20:14)
[2018-04-29] MEDS: SPIRONOLACTONE 25 MG TAB PO (09:11)
[2018-04-29] MEDS: LIDOCAINE 5% PATCH TD (09:11)
[2018-04-29] MEDS: ALLOPURINOL 100 MG TAB PO (13:59)
[2018-04-29] MEDS: DIGOXIN 0.125 MG TAB PO (13:59)
[2018-04-29] MEDS: FOLIC ACID 1 MG TAB PO (14:00)
[2018-04-29] MEDS: FUROSEMIDE 40 MG TAB PO (14:00)
[2018-04-29] MEDS: RIVAROXABAN 15 MG TABLET PO (17:31)
[2018-04-29] MEDS ORDERED: RIVAROXABAN 15 MG TABLET PO (21:00)
[2018-04-29] MEDS: ZOLPIDEM 5 MG TAB PO (21:33)
[2018-04-30 00:33] LABS: AADO2 Arterial 82.7 mmHg (7.0-24.0); Allen Test ACCEPTAB; Arterial Base Excess 9.4 mmol/L (-3.0-3); Arterial Blood Gas Oxygen Sat 90.2 mmHG (95.0-100.0); Arterial Fraction of Oxyhgb 89.2 % (93.0-99.0); Arterial HCO3 36.4 mmol/L (22.0-26.0); Arterial MetHb 0.1 % (0.0-1.5); Arterial Total Hemglobin 13.1 g/dl (12.0-18.0); Arterial pCO2 60.4 mmhg (35-45); MODE NASAL CANNULA; Site Right Radial
[2018-04-30] MEDS: FUROSEMIDE 20 MG INJ IV (01:20)
[2018-04-30] MEDS: AMLODIPINE 5 MG TAB PO (01:20)
[2018-04-30] MEDS: hydrALAzine 20 MG INJ IV (01:24)
[2018-04-30] MEDS: IPRATROPIUM (NEB) 0.5 MG/2.5 ML AMP HHN ×4 (01:44→21:37)
[2018-04-30] MEDS: HALOPERIDOL 5 MG INJ IV ×2 (02:08→03:30)
[2018-04-30] MEDS: LORAZEPAM 2 MG INJ IV (03:30)
[2018-04-30] MEDS: FUROSEMIDE 40 MG INJ IV ×2 (07:24→17:57)
[2018-04-30] MEDS: FUROSEMIDE 40 MG TAB PO (09:00)
[2018-04-30 09:04] LABS: AADO2 Arterial 111.8 mmHg (7.0-24.0); Allen Test ACCEPTAB; Arterial Base Excess 9.9 mmol/L (-3.0-3); Arterial Blood Gas Oxygen Sat 97.5 mmHG (95.0-100.0); Arterial COHb 0.8 % (0.0-3.0); Arterial Fraction of Oxyhgb 96.6 % (93.0-99.0); Arterial HCO3 36.2 mmol/L (22.0-26.0); Arterial MetHb 0.1 % (0.0-1.5); Arterial Total Hemglobin 12.9 g/dl (12.0-18.0); Arterial pCO2 56.2 mmhg (35-45); Blood Gas IEPAP 15/5; Blood Gas PS 10; MODE MASK - BIPAP; Site Right Radial
[2018-04-30] MEDS: ALLOPURINOL 100 MG TAB PO (09:25)
[2018-04-30] MEDS: FOLIC ACID 1 MG TAB PO (09:25)
[2018-04-30] MEDS: LEVOTHYROXINE 25 MCG TAB PO (09:25)
[2018-04-30] MEDS: DOCUSATE SODIUM 250 MG CAP PO (09:25)
[2018-04-30] MEDS: SPIRONOLACTONE 25 MG TAB PO (09:26)
[2018-04-30] MEDS: LOSARTAN 50 MG TAB PO (09:26)
[2018-04-30] MEDS: POLYETHYLENE GLYCOL 17 GM PACKET PO ×2 (09:27→20:27)
[2018-04-30] MEDS: LIDOCAINE 5% PATCH TD (09:28)
[2018-04-30 09:44] LABS: ADD MAN DIFF? NO
[2018-04-30 09:49] LABS: WHITE BLOOD COUNT 9.7 10^3/ul (4.8-10.8)
[2018-04-30 09:49] LABS: ABNORMAL IP MESSAGE 1; BASOPHILS % 0.2 % (0.0-2.0); EOSINOPHILS % 0.1 % (0.0-7.0); HEMATOCRIT 37.4 % (37.0-47.0); HEMOGLOBIN 11.5 g/dl (12.0-16.0); LYMPHOCYTES # 0.7 10^3/ul (0.8-2.9); LYMPHOCYTES % 6.7 % (15.0-51.0); MEAN CORPUSCULAR HGB CONC 30.7 g/dl (32.0-37.0); MEAN CORPUSCULAR VOLUME 100.8 fl (82.0-101.0); MEAN PLATELET VOLUME 13.8 fl (7.4-10.4); MONOCYTE # 0.6 10^3/ul (0.3-0.9); NEUTROPHIL # 8.3 10^3/ul (1.6-7.5); NEUTROPHILS % 86.1 % (39.0-77.0); PLATELET COUNT 126 10^3/UL (140-415); RED BLOOD COUNT 3.71 10^6/ul (4.20-5.40); RED CELL DISTRIBUTION WIDTH 15.9 % (11.5-14.5)
[2018-04-30 09:51] LABS: POSITIVE DIFF @See below
[2018-04-30] MEDS: INSULIN ASPART [NOVOLOG] 3 ML PEN SC ×5 (09:59→20:29)
[2018-04-30 10:25] LABS: ANION GAP 11 (5-13); BLOOD UREA NITROGEN 48 mg/dl (7-20); CALCIUM 8.8 mg/dl (8.4-10.2); CARBON DIOXIDE 39 mmol/L (21-31); CHLORIDE 94 mmol/L (97-110); CREATININE 1.03 mg/dl (0.44-1.00); GLUCOSE 215 mg/dl (70-220); POTASSIUM 4.1 mmol/L (3.5-5.1); SODIUM 144 mmol/L (135-144)
[2018-04-30 17:45] LABS: DIGOXIN 0.9 ng/ml (1.0-2.0)
[2018-04-30] MEDS: DIGOXIN 0.125 MG TAB PO (17:57)
[2018-04-30] MEDS: RIVAROXABAN 15 MG TABLET PO (17:57)
[2018-04-30] MEDS: LEVALBUTEROL (NEB) 0.63 MG/3 ML AMP HHN (21:37)
[2018-05-01] MEDS: IPRATROPIUM (NEB) 0.5 MG/2.5 ML AMP HHN ×4 (03:47→20:09)
[2018-05-01] MEDS: FUROSEMIDE 40 MG INJ IV ×2 (06:12→17:27)
[2018-05-01] MEDS: LEVOTHYROXINE 25 MCG TAB PO (06:12)
[2018-05-01 06:17] LABS: ADD MAN DIFF? NO
[2018-05-01 06:29] LABS: ABNORMAL IP MESSAGE 1; BASOPHILS % 0.2 % (0.0-2.0); EOSINOPHILS # 0.1 10^3/ul (0.0-0.5); EOSINOPHILS % 0.7 % (0.0-7.0); HEMATOCRIT 36.9 % (37.0-47.0); HEMOGLOBIN 11.5 g/dl (12.0-16.0); MEAN CORPUSCULAR HEMOGLOBIN 31.3 pg (29.0-33.0); MEAN CORPUSCULAR HGB CONC 31.2 g/dl (32.0-37.0); MEAN CORPUSCULAR VOLUME 100.5 fl (82.0-101.0); MEAN PLATELET VOLUME 13.4 fl (7.4-10.4); MONOCYTE # 0.8 10^3/ul (0.3-0.9); NEUTROPHIL # 7.6 10^3/ul (1.6-7.5); NEUTROPHILS % 80.3 % (39.0-77.0); PLATELET COUNT 139 10^3/UL (140-415); RED BLOOD COUNT 3.67 10^6/ul (4.20-5.40); RED CELL DISTRIBUTION WIDTH 16.1 % (11.5-14.5)
[2018-05-01 06:29] LABS: WHITE BLOOD COUNT 9.5 10^3/ul (4.8-10.8)
[2018-05-01 06:36] LABS: POSITIVE DIFF @See below
[2018-05-01 07:04] LABS: ANION GAP 11 (5-13); BLOOD UREA NITROGEN 57 mg/dl (7-20); CALCIUM 8.7 mg/dl (8.4-10.2); CARBON DIOXIDE 35 mmol/L (21-31); CHLORIDE 97 mmol/L (97-110); CREATININE 1.03 mg/dl (0.44-1.00); GLUCOSE 153 mg/dl (70-220); POTASSIUM 4.2 mmol/L (3.5-5.1); SODIUM 143 mmol/L (135-144)
[2018-05-01] MEDS: INSULIN ASPART [NOVOLOG] 3 ML PEN SC ×5 (07:57→21:23)
[2018-05-01] MEDS: POLYETHYLENE GLYCOL 17 GM PACKET PO ×2 (08:11→21:00)
[2018-05-01] MEDS: LIDOCAINE 5% PATCH TD (08:12)
[2018-05-01] MEDS: LOSARTAN 50 MG TAB PO (08:12)
[2018-05-01] MEDS: FOLIC ACID 1 MG TAB PO (08:12)
[2018-05-01] MEDS: ALLOPURINOL 100 MG TAB PO (08:12)
[2018-05-01] MEDS: SPIRONOLACTONE 25 MG TAB PO (08:13)
[2018-05-01] MEDS: FUROSEMIDE 40 MG TAB PO (08:13)
[2018-05-01] MEDS: DOCUSATE SODIUM 250 MG CAP PO (08:13)
[2018-05-01 10:15] LABS: Allen Test ACCEPTAB; Arterial Base Excess 10.2 mmol/L (-3.0-3); Arterial Blood Gas Oxygen Sat 88.8 mmHG (95.0-100.0); Arterial COHb 0.8 % (0.0-3.0); Arterial HCO3 34.7 mmol/L (22.0-26.0); Arterial MetHb 0.1 % (0.0-1.5); Arterial Total Hemglobin 12.8 g/dl (12.0-18.0); Arterial pCO2 45.8 mmhg (35-45); MODE ROOM AIR; Site Left Radial
[2018-05-01] MEDS: DIGOXIN 0.125 MG TAB PO (12:01)
[2018-05-01] MEDS: RIVAROXABAN 15 MG TABLET PO (17:26)
[2018-05-02] MEDS: IPRATROPIUM (NEB) 0.5 MG/2.5 ML AMP HHN ×3 (01:13→13:13)
[2018-05-02 06:01] LABS: ADD MAN DIFF? NO
[2018-05-02 06:11] LABS: ABNORMAL IP MESSAGE 1; BASOPHILS % 0.3 % (0.0-2.0); EOSINOPHILS # 0.1 10^3/ul (0.0-0.5); EOSINOPHILS % 0.6 % (0.0-7.0); HEMATOCRIT 35.1 % (37.0-47.0); HEMOGLOBIN 10.9 g/dl (12.0-16.0); LYMPHOCYTES # 0.8 10^3/ul (0.8-2.9); LYMPHOCYTES % 9.9 % (15.0-51.0); MEAN CORPUSCULAR HEMOGLOBIN 31.4 pg (29.0-33.0); MEAN CORPUSCULAR HGB CONC 31.1 g/dl (32.0-37.0); MEAN CORPUSCULAR VOLUME 101.2 fl (82.0-101.0); MEAN PLATELET VOLUME 13.8 fl (7.4-10.4); MONOCYTE # 0.7 10^3/ul (0.3-0.9); MONOCYTES % 8.5 % (0.0-11.0); NEUTROPHIL # 6.4 10^3/ul (1.6-7.5); NEUTROPHILS % 80.1 % (39.0-77.0); PLATELET COUNT 140 10^3/UL (140-415); RED BLOOD COUNT 3.47 10^6/ul (4.20-5.40); RED CELL DISTRIBUTION WIDTH 15.9 % (11.5-14.5)
[2018-05-02] MEDS: FUROSEMIDE 40 MG INJ IV (06:22)
[2018-05-02] MEDS: LEVOTHYROXINE 25 MCG TAB PO (06:22)
[2018-05-02 06:33] LABS: POSITIVE DIFF @See below
[2018-05-02] MEDS: INSULIN ASPART [NOVOLOG] 3 ML PEN SC ×4 (06:40→17:29)
[2018-05-02 06:58] LABS: ANION GAP 8 (5-13); BLOOD UREA NITROGEN 64 mg/dl (7-20); CALCIUM 8.8 mg/dl (8.4-10.2); CARBON DIOXIDE 36 mmol/L (21-31); CHLORIDE 101 mmol/L (97-110); GLUCOSE 210 mg/dl (70-220); POTASSIUM 4.2 mmol/L (3.5-5.1); SODIUM 145 mmol/L (135-144)
[2018-05-02] MEDS: POLYETHYLENE GLYCOL 17 GM PACKET PO (07:33)
[2018-05-02] MEDS: LOSARTAN 50 MG TAB PO (07:40)
[2018-05-02] MEDS: FUROSEMIDE 40 MG TAB PO (07:41)
[2018-05-02] MEDS: FOLIC ACID 1 MG TAB PO (08:02)
[2018-05-02] MEDS: LIDOCAINE 5% PATCH TD (08:02)
[2018-05-02] MEDS: SPIRONOLACTONE 25 MG TAB PO (08:02)
[2018-05-02] MEDS: DOCUSATE SODIUM 250 MG CAP PO (08:03)
[2018-05-02] MEDS: ALLOPURINOL 100 MG TAB PO (08:03)
[2018-05-02] MEDS: DIGOXIN 0.125 MG TAB PO (12:02)
[2018-05-02] MEDS: RIVAROXABAN 15 MG TABLET PO (17:35)
[2018-05-03] MEDS ORDERED: FUROSEMIDE 40 MG INJ IV (09:00)
== END 2018-05-02 18:54 | DRG 291 ==
LOC: E/R 09:19 → 6WM 11:50
PROC: 5A09557 Assistance with Respiratory Ventilation, Greater than 96 Consecutive Hours, Continuous Positive Airway Pressure (ICD-10-PCS; principal; 2018-04-18)
PROC: 4A033R1 Measurement of Arterial Saturation, Peripheral, Percutaneous Approach (ICD-10-PCS; 2018-04-18)
PROC: 4B02XSZ Measurement of Cardiac Pacemaker, External Approach (ICD-10-PCS; 2018-04-22)
DX: I11.0 Hypertensive heart disease with heart failure (principal); J96.21 Acute and chronic respiratory failure with hypoxia; J96.22 Acute and chronic respiratory failure with hypercapnia; I31.3 Pericardial effusion (noninflammatory); D68.9 Coagulation defect, unspecified; E87.2 Acidosis; E66.2 Morbid (severe) obesity with alveolar hypoventilation; Z68.41 Body mass index [BMI] 40.0-44.9, adult; K86.2 Cyst of pancreas; I50.33 Acute on chronic diastolic (congestive) heart failure; D64.9 Anemia, unspecified; D69.6 Thrombocytopenia, unspecified; D33.3 Benign neoplasm of cranial nerves; E11.40 Type 2 diabetes mellitus with diabetic neuropathy, unspecified; E11.65 Type 2 diabetes mellitus with hyperglycemia; E03.9 Hypothyroidism, unspecified; F07.81 Postconcussional syndrome; F32.9 Major depressive disorder, single episode, unspecified; F41.9 Anxiety disorder, unspecified; I25.10 Atherosclerotic heart disease of native coronary artery without angina pectoris; I48.91 Unspecified atrial fibrillation; I25.2 Old myocardial infarction; K21.9 Gastro-esophageal reflux disease without esophagitis; K58.9 Irritable bowel syndrome, unspecified; K59.00 Constipation, unspecified; M81.0 Age-related osteoporosis without current pathological fracture; M40.209 Unspecified kyphosis, site unspecified; M19.012 Primary osteoarthritis, left shoulder; M17.0 Bilateral primary osteoarthritis of knee; N28.9 Disorder of kidney and ureter, unspecified; R32 Unspecified urinary incontinence; R53.81 Other malaise; S80.12XA Contusion of left lower leg, initial encounter; S90.32XA Contusion of left foot, initial encounter; S40.021A Contusion of right upper arm, initial encounter; S40.221A Blister (nonthermal) of right shoulder, initial encounter; S93.602A Unspecified sprain of left foot, initial encounter; W01.0XXA Fall on same level from slipping, tripping and stumbling without subsequent striking against object, initial encounter; Z95.0 Presence of cardiac pacemaker; Z90.49 Acquired absence of other specified parts of digestive tract; Z79.01 Long term (current) use of anticoagulants; Z79.4 Long term (current) use of insulin
CPT/HCPCS: 36415; 36600; 70450; 71045; 71250; 73060; 73060-RT; 73590; 73630-LT; 73700; 74018; 76700; 76856; 80048; 80053; 80061; 80162; 82306; 82378; 82550; 82553; 82607; 82728; 82746; 82803; 82962; 83540; 83615; 83735; 84155; 84165; 84443; 84484; 84560; 85025; 85045; 85610; 85651; 85730; 90686; 93005; 93306; 93971; 94640; 94660; 97110; 97116; 97162; 97167; 97530; 97535; 99285-25; G0378

== ENCOUNTER 2018-05-02 18:50 | Inpatient (IN) | payer MEDICARE, OTHER ==
[2018-05-02] MEDS ORDERED: BISACODYL 10 MG SUPP PR (20:30)
[2018-05-02 23:04] LABS: ADD UMIC YES; UR ASCORBIC ACID NEGATIVE (NEGATIVE); UR BACTERIA MANY /HPF (NONE SEEN); UR BILIRUBIN (Dip) NEGATIVE (NEGATIVE); UR BLOOD (Dip) 1+ mg/dL (NEGATIVE); UR CLARITY SLIGHTLY CLOUDY (CLEAR); UR COLOR YELLOW (YELLOW); UR GLUCOSE (Dip) 1+ mg/dL (NEGATIVE); UR KETONES (Dip) NEGATIVE (NEGATIVE); UR LEUKOCYTE ESTERASE (Dip) 1+ Leu/ul (NEGATIVE); UR MUCUS FEW /HPF (NONE SEEN); UR NITRITE (Dip) NEGATIVE (NEGATIVE); UR RBC 1 /HPF (0-5); UR SPECIFIC GRAVITY (Dip) 1.016 (1.003-1.030); UR TOTAL PROTEIN (Dip) NEGATIVE (NEGATIVE); UR UROBILINOGEN (Dip) NEGATIVE (NEGATIVE); UR WBC 34 /HPF (0-5)
[2018-05-02] MEDS ORDERED: GLUCOSE GEL 15 GRAM TUBE PO ×2 (23:22)
[2018-05-02] MEDS ORDERED: GLUCOSE GEL 15 GRAM TUBE BUCCAL (23:22)
[2018-05-02] MEDS ORDERED: GLUCAGON 1 MG INJ IM (23:22)
[2018-05-02] MEDS ORDERED: GABAPENTIN 100 MG CAP PO (23:22)
[2018-05-02] MEDS ORDERED: NA PHOSPHATE/BIPHOS 133 ML ENEMA PR (23:22)
[2018-05-02] MEDS ORDERED: INSULIN ASPART [NOVOLOG] 3 ML PEN SC (23:22)
[2018-05-02] MEDS ORDERED: NITROGLYCERIN (SL) 0.4 MG TAB SL (23:22)
[2018-05-02] MEDS: SENNA TAB PO (23:35)
[2018-05-02] MEDS: DOCUSATE SODIUM 100 MG CAP PO (23:36)
[2018-05-02] MEDS: INSULIN ASPART [NOVOLOG] 3 ML PEN SC (23:50)
[2018-05-03] MEDS: IPRATROPIUM (NEB) 0.5 MG/2.5 ML AMP HHN ×4 (02:00→20:38)
[2018-05-03 06:29] LABS: ADD MAN DIFF? NO
[2018-05-03 06:38] LABS: ABNORMAL IP MESSAGE 1; BASOPHILS % 0.3 % (0.0-2.0); EOSINOPHILS # 0.1 10^3/ul (0.0-0.5); EOSINOPHILS % 0.9 % (0.0-7.0); HEMATOCRIT 35.4 % (37.0-47.0); LYMPHOCYTES # 0.7 10^3/ul (0.8-2.9); LYMPHOCYTES % 9.4 % (15.0-51.0); MEAN CORPUSCULAR HEMOGLOBIN 31.3 pg (29.0-33.0); MEAN CORPUSCULAR HGB CONC 31.1 g/dl (32.0-37.0); MEAN CORPUSCULAR VOLUME 100.9 fl (82.0-101.0); MEAN PLATELET VOLUME 13.4 fl (7.4-10.4); MONOCYTE # 0.7 10^3/ul (0.3-0.9); MONOCYTES % 8.9 % (0.0-11.0); NEUTROPHIL # 5.9 10^3/ul (1.6-7.5); NEUTROPHILS % 79.8 % (39.0-77.0); PLATELET COUNT 138 10^3/UL (140-415); RED BLOOD COUNT 3.51 10^6/ul (4.20-5.40); RED CELL DISTRIBUTION WIDTH 15.9 % (11.5-14.5)
[2018-05-03 06:38] LABS: WHITE BLOOD COUNT 7.4 10^3/ul (4.8-10.8)
[2018-05-03 06:41] LABS: POSITIVE DIFF @See below
[2018-05-03 07:08] LABS: ALANINE AMINOTRANSFERASE 35 IU/L (13-69); ALBUMIN 2.9 g/dl (3.3-4.9); ALBUMIN/GLOBULIN RATIO 1.07; ALKALINE PHOSPHATASE 79 IU/L (42-121); ANION GAP 5 (5-13); ASPARTATE AMINO TRANSFERASE 24 IU/L (15-46); BILIRUBIN,INDIRECT 0.6 mg/dl (0-1.1); BILIRUBIN,TOTAL 0.6 mg/dl (0.2-1.3); BLOOD UREA NITROGEN 57 mg/dl (7-20); CALCIUM 8.9 mg/dl (8.4-10.2); CARBON DIOXIDE 38 mmol/L (21-31); CHLORIDE 99 mmol/L (97-110); CREATININE 1.06 mg/dl (0.44-1.00); GLUCOSE 178 mg/dl (70-220); POTASSIUM 4.2 mmol/L (3.5-5.1); SODIUM 142 mmol/L (135-144); TOTAL PROTEIN 5.6 g/dl (6.1-8.1)
[2018-05-03] MEDS: LEVOTHYROXINE 25 MCG TAB PO (07:29)
[2018-05-03 07:50] LABS: HEMOGLOBIN A1C 6.4 % (0-5.9)
[2018-05-03] MEDS: INSULIN ASPART [NOVOLOG] 3 ML PEN SC ×5 (08:01→21:00)
[2018-05-03] MEDS: ALLOPURINOL 100 MG TAB PO (08:33)
[2018-05-03] MEDS: FOLIC ACID 1 MG TAB PO (08:33)
[2018-05-03] MEDS: DOCUSATE SODIUM 250 MG CAP PO (08:34)
[2018-05-03] MEDS: LOSARTAN 50 MG TAB PO (08:35)
[2018-05-03] MEDS: SPIRONOLACTONE 25 MG TAB PO (08:35)
[2018-05-03] MEDS: FUROSEMIDE 40 MG TAB PO (08:36)
[2018-05-03] MEDS: DIGOXIN 0.125 MG TAB PO (12:31)
[2018-05-03] MEDS: RIVAROXABAN 15 MG TABLET PO (18:16)
[2018-05-03] MEDS: SENNA TAB PO (20:57)
[2018-05-03 21:26] LABS: MAGNESIUM 2.5 mg/dl (1.7-2.5)
[2018-05-03 21:26] LABS: IRON 65 ug/dl (35-150)
[2018-05-03 21:36] LABS: % IRON SATURATION 21 % SAT (22-52); TOTAL IRON BINDING CAPACITY 303 ug/dl (241-421)
[2018-05-03 21:40] LABS: DIGOXIN 1.1 ng/ml (1.0-2.0)
[2018-05-04] MEDS: IPRATROPIUM (NEB) 0.5 MG/2.5 ML AMP HHN ×4 (00:49→19:45)
[2018-05-04] MEDS: LEVOTHYROXINE 25 MCG TAB PO (06:04)
[2018-05-04] MEDS: INSULIN ASPART [NOVOLOG] 3 ML PEN SC ×5 (07:53→20:20)
[2018-05-04] MEDS: FUROSEMIDE 20 MG TAB PO (09:24)
[2018-05-04] MEDS: LOSARTAN 25 MG TAB PO (09:26)
[2018-05-04] MEDS: ALLOPURINOL 100 MG TAB PO (11:00)
[2018-05-04] MEDS: DOCUSATE SODIUM 250 MG CAP PO (11:00)
[2018-05-04] MEDS: FOLIC ACID 1 MG TAB PO (11:00)
[2018-05-04] MEDS: SPIRONOLACTONE 25 MG TAB PO (11:00)
[2018-05-04] MEDS: SODIUM HYPOCHLORITE (1/40) 1 APPLIC BTL IRR (11:07)
[2018-05-04] MEDS: DIGOXIN 0.125 MG TAB PO (12:59)
[2018-05-04] MEDS: RIVAROXABAN 15 MG TABLET PO (17:32)
[2018-05-04] MEDS: SENNA TAB PO (20:16)
[2018-05-05] MEDS: IPRATROPIUM (NEB) 0.5 MG/2.5 ML AMP HHN ×4 (02:45→20:25)
[2018-05-05] MEDS: LEVOTHYROXINE 25 MCG TAB PO (06:52)
[2018-05-05] MEDS: INSULIN ASPART [NOVOLOG] 3 ML PEN SC ×5 (08:16→21:00)
[2018-05-05] MEDS: FOLIC ACID 1 MG TAB PO (08:17)
[2018-05-05] MEDS: LOSARTAN 25 MG TAB PO (08:17)
[2018-05-05] MEDS: DOCUSATE SODIUM 250 MG CAP PO (08:17)
[2018-05-05] MEDS: FUROSEMIDE 20 MG TAB PO (08:18)
[2018-05-05] MEDS: SPIRONOLACTONE 25 MG TAB PO (08:18)
[2018-05-05] MEDS: ALLOPURINOL 100 MG TAB PO (08:18)
[2018-05-05] MEDS: SODIUM HYPOCHLORITE (1/40) 1 APPLIC BTL IRR (09:57)
[2018-05-05] MEDS: DIGOXIN 0.125 MG TAB PO (12:50)
[2018-05-05] MEDS: RIVAROXABAN 15 MG TABLET PO (17:40)
[2018-05-05] MEDS: SENNA TAB PO (21:00)
[2018-05-06] MEDS: IPRATROPIUM (NEB) 0.5 MG/2.5 ML AMP HHN ×4 (01:05→21:03)
[2018-05-06] MEDS: LEVOTHYROXINE 25 MCG TAB PO (06:32)
[2018-05-06] MEDS: INSULIN ASPART [NOVOLOG] 3 ML PEN SC ×5 (07:48→21:39)
[2018-05-06] MEDS: LOSARTAN 25 MG TAB PO (09:00)
[2018-05-06] MEDS: DOCUSATE SODIUM 250 MG CAP PO (09:04)
[2018-05-06] MEDS: FOLIC ACID 1 MG TAB PO (09:04)
[2018-05-06] MEDS: SPIRONOLACTONE 25 MG TAB PO (09:04)
[2018-05-06] MEDS: ALLOPURINOL 100 MG TAB PO (09:05)
[2018-05-06] MEDS: FUROSEMIDE 20 MG TAB PO (09:05)
[2018-05-06] MEDS: SODIUM HYPOCHLORITE (1/40) 1 APPLIC BTL IRR (09:06)
[2018-05-06] MEDS: DIGOXIN 0.125 MG TAB PO (12:28)
[2018-05-06] MEDS: RIVAROXABAN 15 MG TABLET PO (17:35)
[2018-05-06] MEDS: SENNA TAB PO (21:00)
[2018-05-07] MEDS: IPRATROPIUM (NEB) 0.5 MG/2.5 ML AMP HHN ×4 (01:46→20:21)
[2018-05-07] MEDS: LEVOTHYROXINE 25 MCG TAB PO (06:30)
[2018-05-07 07:36] LABS: ADD MAN DIFF? NO
[2018-05-07 07:41] LABS: ABNORMAL IP MESSAGE 1; BASOPHILS % 0.2 % (0.0-2.0); EOSINOPHILS # 0.1 10^3/ul (0.0-0.5); EOSINOPHILS % 1.3 % (0.0-7.0); HEMATOCRIT 35.8 % (37.0-47.0); LYMPHOCYTES # 0.8 10^3/ul (0.8-2.9); LYMPHOCYTES % 11.8 % (15.0-51.0); MEAN CORPUSCULAR HEMOGLOBIN 31.1 pg (29.0-33.0); MEAN CORPUSCULAR HGB CONC 30.7 g/dl (32.0-37.0); MEAN CORPUSCULAR VOLUME 101.1 fl (82.0-101.0); MEAN PLATELET VOLUME 13.5 fl (7.4-10.4); MONOCYTE # 0.5 10^3/ul (0.3-0.9); MONOCYTES % 7.2 % (0.0-11.0); NEUTROPHILS % 78.6 % (39.0-77.0); PLATELET COUNT 124 10^3/UL (140-415); RED BLOOD COUNT 3.54 10^6/ul (4.20-5.40); RED CELL DISTRIBUTION WIDTH 15.9 % (11.5-14.5)
[2018-05-07 07:41] LABS: WHITE BLOOD COUNT 6.4 10^3/ul (4.8-10.8)
[2018-05-07 07:46] LABS: POSITIVE DIFF @See below
[2018-05-07] MEDS: INSULIN ASPART [NOVOLOG] 3 ML PEN SC ×5 (08:04→20:24)
[2018-05-07 08:10] LABS: ALANINE AMINOTRANSFERASE 29 IU/L (13-69); ALBUMIN/GLOBULIN RATIO 0.96; ALKALINE PHOSPHATASE 83 IU/L (42-121); ANION GAP 7 (5-13); ASPARTATE AMINO TRANSFERASE 23 IU/L (15-46); BILIRUBIN,INDIRECT 0.6 mg/dl (0-1.1); BILIRUBIN,TOTAL 0.6 mg/dl (0.2-1.3); BLOOD UREA NITROGEN 53 mg/dl (7-20); CALCIUM 8.9 mg/dl (8.4-10.2); CARBON DIOXIDE 35 mmol/L (21-31); CHLORIDE 102 mmol/L (97-110); CREATININE 1.03 mg/dl (0.44-1.00); GLUCOSE 157 mg/dl (70-220); POTASSIUM 4.9 mmol/L (3.5-5.1); SODIUM 144 mmol/L (135-144); TOTAL PROTEIN 6.1 g/dl (6.1-8.1)
[2018-05-07] MEDS: ALLOPURINOL 100 MG TAB PO (09:10)
[2018-05-07] MEDS: DOCUSATE SODIUM 250 MG CAP PO (09:10)
[2018-05-07] MEDS: SPIRONOLACTONE 25 MG TAB PO (09:11)
[2018-05-07] MEDS: LOSARTAN 25 MG TAB PO (09:11)
[2018-05-07] MEDS: FOLIC ACID 1 MG TAB PO (09:11)
[2018-05-07] MEDS: FUROSEMIDE 20 MG TAB PO (09:11)
[2018-05-07] MEDS: SODIUM HYPOCHLORITE (1/40) 1 APPLIC BTL IRR (09:12)
[2018-05-07] MEDS: DIGOXIN 0.125 MG TAB PO (13:22)
[2018-05-07] MEDS: RIVAROXABAN 15 MG TABLET PO (17:45)
[2018-05-07] MEDS: TRIMETHOPRIM/SULFAMETHOX (DS) TAB PO (20:20)
[2018-05-07] MEDS: SENNA TAB PO (20:20)
[2018-05-08] MEDS: IPRATROPIUM (NEB) 0.5 MG/2.5 ML AMP HHN ×4 (01:01→19:58)
[2018-05-08] MEDS ORDERED: CIPROFLOXACIN 500 MG TAB PO (06:00)
[2018-05-08] MEDS: LEVOTHYROXINE 25 MCG TAB PO (06:56)
[2018-05-08] MEDS: INSULIN ASPART [NOVOLOG] 3 ML PEN SC ×5 (07:35→20:26)
[2018-05-08] MEDS: ALLOPURINOL 100 MG TAB PO (08:28)
[2018-05-08] MEDS: TRIMETHOPRIM/SULFAMETHOX (DS) TAB PO ×2 (08:28→20:23)
[2018-05-08] MEDS: FUROSEMIDE 20 MG TAB PO (08:28)
[2018-05-08] MEDS: SPIRONOLACTONE 25 MG TAB PO (08:28)
[2018-05-08] MEDS: DOCUSATE SODIUM 250 MG CAP PO (08:28)
[2018-05-08] MEDS: FOLIC ACID 1 MG TAB PO (08:28)
[2018-05-08] MEDS: SODIUM HYPOCHLORITE (1/40) 1 APPLIC BTL IRR (08:29)
[2018-05-08] MEDS: LOSARTAN 25 MG TAB PO (08:29)
[2018-05-08] MEDS: DIGOXIN 0.125 MG TAB PO (13:06)
[2018-05-08] MEDS: HYDROCODONE/APAP (5/325) TAB PO ×2 (13:07→20:25)
[2018-05-08] MEDS: LACTULOSE 30ML CUP PO (13:32)
[2018-05-08] MEDS: RIVAROXABAN 15 MG TABLET PO (17:18)
[2018-05-08] MEDS: SENNA TAB PO (20:23)
[2018-05-08] MEDS: ACETAMINOPHEN 325 MG TAB PO (20:29)
[2018-05-09] MEDS: IPRATROPIUM (NEB) 0.5 MG/2.5 ML AMP HHN ×4 (01:00→19:39)
[2018-05-09] MEDS: LEVOTHYROXINE 25 MCG TAB PO (06:15)
[2018-05-09] MEDS: ALLOPURINOL 100 MG TAB PO (09:14)
[2018-05-09] MEDS: FOLIC ACID 1 MG TAB PO (09:14)
[2018-05-09] MEDS: LOSARTAN 25 MG TAB PO (09:14)
[2018-05-09] MEDS: TRIMETHOPRIM/SULFAMETHOX (DS) TAB PO ×2 (09:14→20:36)
[2018-05-09] MEDS: DOCUSATE SODIUM 250 MG CAP PO (09:14)
[2018-05-09] MEDS: SPIRONOLACTONE 25 MG TAB PO (09:14)
[2018-05-09] MEDS: FUROSEMIDE 20 MG TAB PO (09:15)
[2018-05-09] MEDS: INSULIN ASPART [NOVOLOG] 3 ML PEN SC ×5 (09:18→20:43)
[2018-05-09] MEDS: POLYETHYLENE GLYCOL 17 GM PACKET PO (10:27)
[2018-05-09] MEDS: DIGOXIN 0.125 MG TAB PO (13:00)
[2018-05-09] MEDS: SODIUM HYPOCHLORITE (1/40) 1 APPLIC BTL IRR (14:00)
[2018-05-09] MEDS: RIVAROXABAN 15 MG TABLET PO (17:25)
[2018-05-09] MEDS: SENNA TAB PO (20:36)
[2018-05-10] MEDS: IPRATROPIUM (NEB) 0.5 MG/2.5 ML AMP HHN ×4 (01:23→20:55)
[2018-05-10] MEDS: LEVOTHYROXINE 25 MCG TAB PO (06:36)
[2018-05-10] MEDS: INSULIN ASPART [NOVOLOG] 3 ML PEN SC ×5 (07:35→21:00)
[2018-05-10] MEDS: DOCUSATE SODIUM 250 MG CAP PO (08:38)
[2018-05-10] MEDS: TRIMETHOPRIM/SULFAMETHOX (DS) TAB PO (08:39)
[2018-05-10] MEDS: FUROSEMIDE 20 MG TAB PO (08:39)
[2018-05-10] MEDS: FOLIC ACID 1 MG TAB PO (08:39)
[2018-05-10] MEDS: ALLOPURINOL 100 MG TAB PO (08:40)
[2018-05-10] MEDS: LOSARTAN 25 MG TAB PO (08:40)
[2018-05-10] MEDS: SODIUM HYPOCHLORITE (1/40) 1 APPLIC BTL IRR (08:41)
[2018-05-10] MEDS: SPIRONOLACTONE 25 MG TAB PO (08:41)
[2018-05-10 12:59] LABS: ADD MAN DIFF? NO
[2018-05-10 13:01] LABS: BASOPHILS % 0.4 % (0.0-2.0); EOSINOPHILS # 0.1 10^3/ul (0.0-0.5); EOSINOPHILS % 1.3 % (0.0-7.0); HEMATOCRIT 34.8 % (37.0-47.0); LYMPHOCYTES # 0.7 10^3/ul (0.8-2.9); LYMPHOCYTES % 8.2 % (15.0-51.0); MEAN CORPUSCULAR HEMOGLOBIN 31.7 pg (29.0-33.0); MEAN CORPUSCULAR HGB CONC 31.6 g/dl (32.0-37.0); MEAN CORPUSCULAR VOLUME 100.3 fl (82.0-101.0); MEAN PLATELET VOLUME 12.6 fl (7.4-10.4); MONOCYTE # 0.5 10^3/ul (0.3-0.9); MONOCYTES % 5.9 % (0.0-11.0); NEUTROPHIL # 6.9 10^3/ul (1.6-7.5); NEUTROPHILS % 83.1 % (39.0-77.0); PLATELET COUNT 131 10^3/UL (140-415); RED BLOOD COUNT 3.47 10^6/ul (4.20-5.40); RED CELL DISTRIBUTION WIDTH 16.3 % (11.5-14.5)
[2018-05-10 13:01] LABS: WHITE BLOOD COUNT 8.3 10^3/ul (4.8-10.8)
[2018-05-10 13:26] LABS: ANION GAP 10 (5-13); BLOOD UREA NITROGEN 43 mg/dl (7-20); CARBON DIOXIDE 28 mmol/L (21-31); CHLORIDE 101 mmol/L (97-110); CREATININE 1.28 mg/dl (0.44-1.00); GLUCOSE 219 mg/dl (70-220); POTASSIUM 5.9 mmol/L (3.5-5.1); SODIUM 139 mmol/L (135-144)
[2018-05-10] MEDS: DIGOXIN 0.125 MG TAB PO (13:48)
[2018-05-10] MEDS: RIVAROXABAN 15 MG TABLET PO (18:22)
[2018-05-10] MEDS: MULTIVITAMINS THERAPEUTIC TAB PO (20:13)
[2018-05-10] MEDS: SENNA TAB PO (20:13)
[2018-05-10] MEDS: NA POLYST SULFON 15 GM/60 ML BTL PR (22:00)
[2018-05-11] MEDS: IPRATROPIUM (NEB) 0.5 MG/2.5 ML AMP HHN ×4 (00:43→19:59)
[2018-05-11] MEDS: LEVOTHYROXINE 25 MCG TAB PO (06:16)
[2018-05-11] MEDS: INSULIN ASPART [NOVOLOG] 3 ML PEN SC ×5 (07:35→21:00)
[2018-05-11] MEDS ORDERED: NA POLYST SULFON 15 GM/60 ML BTL PR (08:30)
[2018-05-11] MEDS: FOLIC ACID 1 MG TAB PO (08:58)
[2018-05-11] MEDS: ALLOPURINOL 100 MG TAB PO (08:58)
[2018-05-11] MEDS: LOSARTAN 25 MG TAB PO (08:58)
[2018-05-11] MEDS: DOCUSATE SODIUM 250 MG CAP PO (08:58)
[2018-05-11] MEDS: FUROSEMIDE 20 MG TAB PO (08:59)
[2018-05-11] MEDS: SODIUM HYPOCHLORITE (1/40) 1 APPLIC BTL IRR (08:59)
[2018-05-11] MEDS: NA POLYST SULFON 15 GM/60 ML BTL PR (09:09)
[2018-05-11] MEDS: DIGOXIN 0.125 MG TAB PO (12:10)
[2018-05-11 12:32] LABS: ANION GAP 8 (5-13); BLOOD UREA NITROGEN 41 mg/dl (7-20); CALCIUM 9.4 mg/dl (8.4-10.2); CARBON DIOXIDE 32 mmol/L (21-31); CHLORIDE 100 mmol/L (97-110); CREATININE 1.41 mg/dl (0.44-1.00); GLUCOSE 174 mg/dl (70-220); POTASSIUM 5.5 mmol/L (3.5-5.1); SODIUM 140 mmol/L (135-144)
[2018-05-11] MEDS: RIVAROXABAN 15 MG TABLET PO (17:11)
[2018-05-11] MEDS: FUROSEMIDE 20 MG INJ IV ×2 (17:14→17:51)
[2018-05-11] MEDS: SENNA TAB PO (21:00)
[2018-05-11] MEDS: MULTIVITAMINS THERAPEUTIC TAB PO (21:54)
[2018-05-12] MEDS: IPRATROPIUM (NEB) 0.5 MG/2.5 ML AMP HHN ×4 (01:08→19:44)
[2018-05-12] MEDS: LEVOTHYROXINE 25 MCG TAB PO (07:03)
[2018-05-12] MEDS: INSULIN ASPART [NOVOLOG] 3 ML PEN SC ×5 (07:35→21:11)
[2018-05-12 07:45] LABS: INR 1.99; PROTIME 23.1 Sec (11.9-14.9); PT RATIO 1.8
[2018-05-12 07:56] LABS: ANION GAP 7 (5-13); BLOOD UREA NITROGEN 35 mg/dl (7-20); CALCIUM 9.2 mg/dl (8.4-10.2); CARBON DIOXIDE 31 mmol/L (21-31); CHLORIDE 103 mmol/L (97-110); CREATININE 1.39 mg/dl (0.44-1.00); GLUCOSE 139 mg/dl (70-220); POTASSIUM 5.1 mmol/L (3.5-5.1); SODIUM 141 mmol/L (135-144)
[2018-05-12] MEDS: FUROSEMIDE 20 MG INJ IV (08:00)
[2018-05-12] MEDS: FOLIC ACID 1 MG TAB PO (08:45)
[2018-05-12] MEDS: LOSARTAN 25 MG TAB PO (08:45)
[2018-05-12] MEDS: FUROSEMIDE 40 MG TAB PO ×2 (08:45→17:07)
[2018-05-12] MEDS: ALLOPURINOL 100 MG TAB PO (08:46)
[2018-05-12] MEDS: DOCUSATE SODIUM 250 MG CAP PO (08:46)
[2018-05-12] MEDS: SODIUM HYPOCHLORITE (1/40) 1 APPLIC BTL IRR (08:46)
[2018-05-12] MEDS: DIGOXIN 0.125 MG TAB PO (12:26)
[2018-05-12] MEDS: RIVAROXABAN 15 MG TABLET PO (17:06)
[2018-05-12] MEDS: SENNA TAB PO (21:00)
[2018-05-12] MEDS: MULTIVITAMINS THERAPEUTIC TAB PO (21:00)
[2018-05-13] MEDS: IPRATROPIUM (NEB) 0.5 MG/2.5 ML AMP HHN ×4 (01:01→21:01)
[2018-05-13] MEDS: FUROSEMIDE 40 MG TAB PO ×2 (06:46→17:36)
[2018-05-13] MEDS: LEVOTHYROXINE 25 MCG TAB PO (06:46)
[2018-05-13] MEDS: INSULIN ASPART [NOVOLOG] 3 ML PEN SC ×5 (07:56→21:07)
[2018-05-13] MEDS: DOCUSATE SODIUM 250 MG CAP PO (08:46)
[2018-05-13] MEDS: ALLOPURINOL 100 MG TAB PO (08:46)
[2018-05-13] MEDS: FOLIC ACID 1 MG TAB PO (08:46)
[2018-05-13] MEDS: LOSARTAN 25 MG TAB PO (08:47)
[2018-05-13] MEDS: SODIUM HYPOCHLORITE (1/40) 1 APPLIC BTL IRR ×2 (08:49→14:17)
[2018-05-13] MEDS: DIGOXIN 0.125 MG TAB PO (13:22)
[2018-05-13] MEDS: RIVAROXABAN 15 MG TABLET PO (17:36)
[2018-05-13] MEDS: SENNA TAB PO (21:03)
[2018-05-13] MEDS: MULTIVITAMINS THERAPEUTIC TAB PO (21:03)
[2018-05-14] MEDS: IPRATROPIUM (NEB) 0.5 MG/2.5 ML AMP HHN ×4 (02:24→20:00)
[2018-05-14] MEDS: LEVOTHYROXINE 25 MCG TAB PO (07:14)
[2018-05-14] MEDS: FUROSEMIDE 40 MG TAB PO ×2 (07:14→17:27)
[2018-05-14 07:25] LABS: ADD MAN DIFF? NO
[2018-05-14 07:30] LABS: WHITE BLOOD COUNT 6.2 10^3/ul (4.8-10.8)
[2018-05-14 07:30] LABS: BASOPHILS % 0.5 % (0.0-2.0); EOSINOPHILS # 0.2 10^3/ul (0.0-0.5); EOSINOPHILS % 2.4 % (0.0-7.0); HEMATOCRIT 35.3 % (37.0-47.0); HEMOGLOBIN 10.9 g/dl (12.0-16.0); LYMPHOCYTES # 0.9 10^3/ul (0.8-2.9); LYMPHOCYTES % 14.1 % (15.0-51.0); MEAN CORPUSCULAR HEMOGLOBIN 31.2 pg (29.0-33.0); MEAN CORPUSCULAR HGB CONC 30.9 g/dl (32.0-37.0); MEAN CORPUSCULAR VOLUME 101.1 fl (82.0-101.0); MEAN PLATELET VOLUME 12.8 fl (7.4-10.4); MONOCYTE # 0.5 10^3/ul (0.3-0.9); NEUTROPHIL # 4.6 10^3/ul (1.6-7.5); PLATELET COUNT 107 10^3/UL (140-415); RED BLOOD COUNT 3.49 10^6/ul (4.20-5.40); RED CELL DISTRIBUTION WIDTH 16.1 % (11.5-14.5)
[2018-05-14 07:55] LABS: ANION GAP 6 (5-13); BLOOD UREA NITROGEN 40 mg/dl (7-20); CALCIUM 9.3 mg/dl (8.4-10.2); CARBON DIOXIDE 35 mmol/L (21-31); CHLORIDE 100 mmol/L (97-110); CREATININE 1.18 mg/dl (0.44-1.00); GLUCOSE 166 mg/dl (70-220); MAGNESIUM 2.2 mg/dl (1.7-2.5); PHOSPHORUS 3.8 mg/dl (2.5-4.9); POTASSIUM 4.7 mmol/L (3.5-5.1); SODIUM 141 mmol/L (135-144)
[2018-05-14] MEDS: INSULIN ASPART [NOVOLOG] 3 ML PEN SC ×5 (08:00→20:28)
[2018-05-14] MEDS: DOCUSATE SODIUM 250 MG CAP PO (08:31)
[2018-05-14] MEDS: LOSARTAN 25 MG TAB PO (08:32)
[2018-05-14] MEDS: ALLOPURINOL 100 MG TAB PO (08:32)
[2018-05-14] MEDS: SODIUM HYPOCHLORITE (1/40) 1 APPLIC BTL IRR (08:32)
[2018-05-14] MEDS: FOLIC ACID 1 MG TAB PO (08:32)
[2018-05-14] MEDS: DIGOXIN 0.125 MG TAB PO (13:00)
[2018-05-14] MEDS: RIVAROXABAN 15 MG TABLET PO (17:27)
[2018-05-14] MEDS: LEVALBUTEROL (NEB) 0.63 MG/3 ML AMP HHN (18:33)
[2018-05-14] MEDS: MULTIVITAMINS THERAPEUTIC TAB PO (20:29)
[2018-05-14] MEDS: SENNA TAB PO (20:29)
[2018-05-14] MEDS: HYDROCODONE/APAP (5/325) TAB PO (20:29)
[2018-05-15] MEDS: IPRATROPIUM (NEB) 0.5 MG/2.5 ML AMP HHN ×4 (00:35→20:36)
[2018-05-15 04:25] LABS: ADD UMIC NO; UR ASCORBIC ACID NEGATIVE (NEGATIVE); UR BILIRUBIN (Dip) NEGATIVE (NEGATIVE); UR BLOOD (Dip) NEGATIVE (NEGATIVE); UR CLARITY CLEAR (CLEAR); UR COLOR YELLOW (YELLOW); UR GLUCOSE (Dip) 1+ mg/dL (NEGATIVE); UR KETONES (Dip) NEGATIVE (NEGATIVE); UR LEUKOCYTE ESTERASE (Dip) NEGATIVE Leu/ul (NEGATIVE); UR NITRITE (Dip) NEGATIVE (NEGATIVE); UR SPECIFIC GRAVITY (Dip) 1.012 (1.003-1.030); UR TOTAL PROTEIN (Dip) NEGATIVE (NEGATIVE); UR UROBILINOGEN (Dip) NEGATIVE (NEGATIVE)
[2018-05-15] MEDS: FUROSEMIDE 40 MG TAB PO ×2 (06:22→17:32)
[2018-05-15] MEDS: LEVOTHYROXINE 25 MCG TAB PO (06:22)
[2018-05-15] MEDS: INSULIN ASPART [NOVOLOG] 3 ML PEN SC ×5 (07:30→20:53)
[2018-05-15] MEDS: FOLIC ACID 1 MG TAB PO (08:41)
[2018-05-15] MEDS: ALLOPURINOL 100 MG TAB PO (08:41)
[2018-05-15] MEDS: DOCUSATE SODIUM 250 MG CAP PO (08:41)
[2018-05-15] MEDS: LOSARTAN 25 MG TAB PO (08:41)
[2018-05-15] MEDS: SODIUM HYPOCHLORITE (1/40) 1 APPLIC BTL IRR (08:42)
[2018-05-15] MEDS: ACETAMINOPHEN 325 MG TAB PO (12:38)
[2018-05-15] MEDS: DIGOXIN 0.125 MG TAB PO (12:43)
[2018-05-15] MEDS: RIVAROXABAN 15 MG TABLET PO (17:30)
[2018-05-15] MEDS: MULTIVITAMINS THERAPEUTIC TAB PO (20:26)
[2018-05-15] MEDS: SENNA TAB PO (20:26)
[2018-05-16] MEDS: IPRATROPIUM (NEB) 0.5 MG/2.5 ML AMP HHN ×6 (01:14→20:43)
[2018-05-16] MEDS: LEVOTHYROXINE 25 MCG TAB PO (06:38)
[2018-05-16] MEDS: FUROSEMIDE 40 MG TAB PO ×2 (06:43→17:23)
[2018-05-16] MEDS: LOSARTAN 25 MG TAB PO (08:31)
[2018-05-16] MEDS: DOCUSATE SODIUM 250 MG CAP PO (08:31)
[2018-05-16] MEDS: ALLOPURINOL 100 MG TAB PO (08:31)
[2018-05-16] MEDS: FOLIC ACID 1 MG TAB PO (08:31)
[2018-05-16] MEDS: SODIUM HYPOCHLORITE (1/40) 1 APPLIC BTL IRR (08:32)
[2018-05-16] MEDS: INSULIN ASPART [NOVOLOG] 3 ML PEN SC ×5 (08:34→20:42)
[2018-05-16] MEDS: DIGOXIN 0.125 MG TAB PO (12:21)
[2018-05-16] MEDS: MULTIVITAMINS THERAPEUTIC TAB PO (20:32)
[2018-05-16] MEDS: SENNA TAB PO (20:35)
[2018-05-16] MEDS: RIVAROXABAN 15 MG TABLET PO (20:41)
[2018-05-17] MEDS: IPRATROPIUM (NEB) 0.5 MG/2.5 ML AMP HHN ×5 (02:19→19:53)
[2018-05-17] MEDS: LEVOTHYROXINE 25 MCG TAB PO (06:54)
[2018-05-17] MEDS: FUROSEMIDE 40 MG TAB PO (06:54)
[2018-05-17] MEDS: INSULIN ASPART [NOVOLOG] 3 ML PEN SC ×5 (08:17→21:09)
[2018-05-17] MEDS: LOSARTAN 25 MG TAB PO (09:00)
[2018-05-17 09:12] LABS: ANION GAP 7 (5-13); BLOOD UREA NITROGEN 51 mg/dl (7-20); CALCIUM 9.1 mg/dl (8.4-10.2); CARBON DIOXIDE 33 mmol/L (21-31); CHLORIDE 104 mmol/L (97-110); CREATININE 1.11 mg/dl (0.44-1.00); GLUCOSE 165 mg/dl (70-220); POTASSIUM 4.6 mmol/L (3.5-5.1); SODIUM 144 mmol/L (135-144)
[2018-05-17] MEDS: SODIUM HYPOCHLORITE (1/40) 1 APPLIC BTL IRR (09:46)
[2018-05-17] MEDS: FOLIC ACID 1 MG TAB PO (09:46)
[2018-05-17] MEDS: ALLOPURINOL 100 MG TAB PO (09:46)
[2018-05-17] MEDS: DOCUSATE SODIUM 250 MG CAP PO (09:46)
[2018-05-17] MEDS: DIGOXIN 0.125 MG TAB PO (13:32)
[2018-05-17] MEDS: SENNA TAB PO (21:02)
[2018-05-17] MEDS: MULTIVITAMINS THERAPEUTIC TAB PO (21:02)
[2018-05-18] MEDS: IPRATROPIUM (NEB) 0.5 MG/2.5 ML AMP HHN ×4 (02:10→20:15)
[2018-05-18] MEDS: LEVOTHYROXINE 25 MCG TAB PO (06:15)
[2018-05-18] MEDS: INSULIN ASPART [NOVOLOG] 3 ML PEN SC ×5 (07:58→20:42)
[2018-05-18] MEDS: SODIUM HYPOCHLORITE (1/40) 1 APPLIC BTL IRR (09:06)
[2018-05-18] MEDS: ALLOPURINOL 100 MG TAB PO (09:06)
[2018-05-18] MEDS: DOCUSATE SODIUM 250 MG CAP PO (09:06)
[2018-05-18] MEDS: FOLIC ACID 1 MG TAB PO (09:07)
[2018-05-18] MEDS: HYDROCHLOROTHIAZIDE 12.5 MG CAP PO (09:07)
[2018-05-18] MEDS: FUROSEMIDE 20 MG TAB PO (09:07)
[2018-05-18] MEDS: LOSARTAN 25 MG TAB PO (09:07)
[2018-05-18] MEDS: DIGOXIN 0.125 MG TAB PO (12:12)
[2018-05-18] MEDS: PHYTONADIONE (1 MG/ML PO SYG) PO (18:24)
[2018-05-18] MEDS: SENNA TAB PO (20:37)
[2018-05-18] MEDS: MULTIVITAMINS THERAPEUTIC TAB PO (20:37)
[2018-05-19] MEDS: IPRATROPIUM (NEB) 0.5 MG/2.5 ML AMP HHN ×3 (01:32→14:35)
[2018-05-19] MEDS: LEVOTHYROXINE 25 MCG TAB PO (06:28)
[2018-05-19 07:12] LABS: INR 1.23; PROTIME 15.7 Sec (11.9-14.9); PT RATIO 1.2
[2018-05-19] MEDS: INSULIN ASPART [NOVOLOG] 3 ML PEN SC ×4 (08:16→17:15)
[2018-05-19 11:50] LABS: FLUID GLUCOSE 165 mg/dl; FLUID TYPE THORACENTESIS FLUID
[2018-05-19 11:51] LABS: FLUID LD 185 U/L; FLUID TOTAL PROTEIN < 2.0 g/dl
[2018-05-19 12:17] LABS: FLD MN% 87.6 %; FLD PMN% 12.4 %; FLD RBC 0 /uL; FLD WBC 249 /cmm
[2018-05-19 12:18] LABS: FLD TYPE THORACENTHESIS
[2018-05-19 12:18] LABS: FLD CLARITY CLEAR; FLD COLOR YELLOW
[2018-05-19] MEDS: DOCUSATE SODIUM 250 MG CAP PO (14:06)
[2018-05-19] MEDS: DIGOXIN 0.125 MG TAB PO (14:07)
[2018-05-19] MEDS: FUROSEMIDE 20 MG TAB PO (14:07)
[2018-05-19] MEDS: HYDROCHLOROTHIAZIDE 12.5 MG CAP PO (14:08)
[2018-05-19] MEDS: ALLOPURINOL 100 MG TAB PO (14:08)
[2018-05-19] MEDS: LOSARTAN 25 MG TAB PO (14:08)
[2018-05-19] MEDS: FOLIC ACID 1 MG TAB PO (14:08)
[2018-05-19] MEDS: SODIUM HYPOCHLORITE (1/40) 1 APPLIC BTL IRR (14:09)
[2018-05-20] MEDS ORDERED: RIVAROXABAN 15 MG TABLET PO (17:35)
== END 2018-05-19 18:15 | DRG 308 ==
LOC: VRC 18:50
PROC: F07Z5ZZ Bed Mobility Treatment (ICD-10-PCS; principal; 2018-05-02)
PROC: F08Z2ZZ Grooming/Personal Hygiene Treatment (ICD-10-PCS; 2018-05-02)
DX: I48.91 Unspecified atrial fibrillation (principal); I50.43 Acute on chronic combined systolic (congestive) and diastolic (congestive) heart failure; D68.9 Coagulation defect, unspecified; I31.3 Pericardial effusion (noninflammatory); I13.0 Hypertensive heart and chronic kidney disease with heart failure and stage 1 through stage 4 chronic kidney disease, or unspecified chronic kidney disease; N39.0 Urinary tract infection, site not specified; K86.2 Cyst of pancreas; R06.03 Acute respiratory distress; R53.81 Other malaise; D64.9 Anemia, unspecified; D69.6 Thrombocytopenia, unspecified; Z91.81 History of falling; I25.10 Atherosclerotic heart disease of native coronary artery without angina pectoris; E11.9 Type 2 diabetes mellitus without complications; K21.9 Gastro-esophageal reflux disease without esophagitis; N18.9 Chronic kidney disease, unspecified; E11.22 Type 2 diabetes mellitus with diabetic chronic kidney disease; S80.12XA Contusion of left lower leg, initial encounter; W19.XXXA Unspecified fall, initial encounter; Y92.9 Unspecified place or not applicable; J44.9 Chronic obstructive pulmonary disease, unspecified; Y92.009 Unspecified place in unspecified non-institutional (private) residence as the place of occurrence of the external cause; E03.9 Hypothyroidism, unspecified; M81.0 Age-related osteoporosis without current pathological fracture; M40.209 Unspecified kyphosis, site unspecified; Z95.0 Presence of cardiac pacemaker; Z79.82 Long term (current) use of aspirin; S80.12XD Contusion of left lower leg, subsequent encounter; S80.11XD Contusion of right lower leg, subsequent encounter; E66.01 Morbid (severe) obesity due to excess calories; Z68.34 Body mass index [BMI] 34.0-34.9, adult; H91.90 Unspecified hearing loss, unspecified ear
CPT/HCPCS: 71045; 76604; 76942; 80048; 80053; 80162; 81001; 81003; 82945; 82962; 83036; 83540; 83615; 83735; 84100; 84157; 85025; 85610; 85730; 87070; 87081; 87086; 87102; 87116; 88104; 88305; 89051; 93005; 94640; 94660; 94664; 97110; 97112; 97116; 97163; 97167; 97530; 97535; 97542